=== PATIENT | male | born 1955 | race Caucasian/White ===

== ENCOUNTER → 2020-10-02 09:11 | Outpatient (BNVA) | payer MEDICARE, SELFPAY | PROVIDERS: PCP Internal Medicine; Visit Provider Urology | DX: N40.0 Benign prostatic hyperplasia without lower urinary tract symptoms (principal) | CPT/HCPCS: Q3014 ==

== ENCOUNTER → 2021-05-28 09:27 | Outpatient (BNVA) | payer MEDICARE, SELFPAY | PROVIDERS: PCP Internal Medicine; Referring Provider Internal Medicine; Visit Provider Surgery | DX: K40.20 Bilateral inguinal hernia, without obstruction or gangrene, not specified as recurrent (principal) | CPT/HCPCS: 99202 ==

== ENCOUNTER 2021-06-12 05:59 | Day surgery (SDC) | payer MEDICARE, SELFPAY ==
[2021-06-07 13:30] VITALS: BMI 25.7
--- NOTE | 2021-06-11 09:33 | HO.ANESPROP2 ---
Documented by User: Amisha Flanagan NP 06/11/21 09:34 HPI - Anesthesia Eval Consult details Narrative: 65yo M for Bilateral Hernia Repair Inguinal with Mesh PMFSH Active Problems Active Problems: All Active Problems (Updated 05/28/21 @ 10:40 by Pipe Freeman MD) Bilateral inguinal hernia (Acute) Past Medical History Medical History Anxiety BPH (benign prostatic hyperplasia) Elevated blood pressure reading in office with diagnosis of hypertension Elevated PSA Hypogonadism in male Retention of urine Family History Family History Mother Breast cancer Surgical History Surgical History H/O colonoscopy History of transurethral resection of prostate Social History Social History Alcohol intake: current Patient Tobacco Use Status: Never used Tobacco Advance Directives Information Provided: No Meds Allergies Allergy/AdvReac Type Severity Reaction Status Date / Time No Known Allergies Allergy Unverified 06/14/20 14:39 [No Known Allergies*] Home Medications Medication Instructions Recorded Confirmed Last Taken Type ketorolac 0.5 % eye drops 1 drp OPHTHALMIC (EYE) DAILY 10/02/20 06/07/21 Unknown History lorazepam 0.5 mg tablet 0.5 mg PO TID PRN 10/02/20 06/07/21 Unknown History nifedipine 30 mg tablet,extended 30 mg PO DAILY 10/02/20 06/07/21 Unknown History release valsartan 160 mg tablet 160 mg PO DAILY 10/02/20 06/07/21 Unknown History Exam Exam Date and Time: June 11, 2021 0933 Height,Weight and Vital Signs: Height 5 ft 7 in Weight 74.5 kg Assessment and Plan Assessment Anesthesia Assessment: Chart Reviewed Documented by User: Lizzie Smith MD 06/12/21 07:32 [facility], [facility] Past Medical History Medical History Anxiety BPH (benign prostatic hyperplasia) Elevated blood pressure reading in office with diagnosis of hypertension Elevated PSA Hypogonadism in male Retention of urine Family History Family History Mother Breast cancer Family history of problems with anesthesia: No Surgical History Surgical History H/O colonoscopy History of transurethral resection of prostate History of Problems with Anesthesia: No Social History Social History Alcohol intake: current Patient Tobacco Use Status: Never used Tobacco Advance Directives Information Provided: No Meds Allergies Allergy/AdvReac Type Severity Reaction Status Date / Time No Known Allergies Allergy Unverified 06/14/20 14:39 [No Known Allergies*] Home Medications Medication Instructions Recorded Confirmed Last Taken Type ketorolac 0.5 % eye drops 1 drp OPHTHALMIC (EYE) DAILY 10/02/20 06/07/21 Unknown History lorazepam 0.5 mg tablet 0.5 mg PO TID PRN 10/02/20 06/07/21 Unknown History nifedipine 30 mg tablet,extended 30 mg PO DAILY 10/02/20 06/07/21 Unknown History release valsartan 160 mg tablet 160 mg PO DAILY 10/02/20 06/07/21 Unknown History Exam Height,Weight and Vital Signs: Height 5 ft 7 in Weight 74.5 kg Vital Signs Temp Pulse Resp BP Pulse Ox 06/12/21 06:26 98.5 F 78 16 170/80 H 99 Airway Mallampati Class: II TM Dist: >3cm Neck ROM: Full Loose/Missing/Broken Teeth: No Heart: RRR Lungs: CTAB Assessment and Plan Assessment Anesthesia Assessment: Anesthesia Plan Discussed Final Anesthetic Review Family History of Problems with Anesthesia: No History of Problems with Anesthesia: No NPO: Yes ASA Class: II Final Preanesthetic Review: No Changes in Pt Med Stat, Meds/Allgs Chart Reviewed, Consent Obtained/Reviewed and Anes Risks/Benef Reviewed Patient Risk: Low Procedure Risk: Low Assessment/Block/Sedation in SS: Assess/Block/Sedation-SS Anesthetic Plan Anesthetic Plan: GA Disposition: Standard PACU
[2021-06-12] VITALS (9 sets, daily range): BP systolic 130–170; BP diastolic 61–80; PULSE 73–85; RESP 12–18; TEMP 36.4–36.9; O2SAT 96–99
[2021-06-12] MEDS: Lactated Ringers 1,000 ML 100 ML IVCONT (06:52)
--- NOTE | 2021-06-12 07:25 | MHC.SHP ---
Pre-Procedural Eval Section A Date of Service: 06/12/21 The patient is an INPATIENT: No Changes since office visit: Yes Patient answered all questions; No Cold of Flu in the past 2 weeks, No New Medical Problems and No Changes in Medication The History & Physical has been completed within 30 days and I have reviewed it.: Yes Section B Chief Complaint: Bilateral Inguinal Hernia Allergies: Allergies Allergy/AdvReac Type Severity Reaction Status Date / Time No Known Allergies Allergy Unverified 06/14/20 14:39 [No Known Allergies*] Plan Diagnosis/Plan: Unchanged I have reviewed the history and physical and performed a pertinent physical examination on my patient. No changes have occurred unless specified.
--- NOTE | 2021-06-12 09:16 | P.OP_ITS ---
Operative Note Operative Note Date of Service: 06/12/21 Narrative: Preoperative diagnosis: Bilateral inguinal hernias Postoperative diagnosis: Same Procedure: Repair of bilateral inguinal hernias with mesh Surgeon: Pipe Freeman MD Railroad Wheels And Axle Inspector: No physician Anesthesia: General LMA Indications for procedure: 65-year-old male patient presenting with a palpable bilateral inguinal hernias which increase in size with Valsalva maneuvers and reduces with light pressure. Operative findings: Bilateral indirect inguinal hernias Specimen: Bilateral inguinal hernia sac Estimated blood loss: 10 mL Complications: None Procedure details: Patient was brought to the OR placed in a supine position. After administering general anesthesia the patient's abdomen was prepped with ChloraPrep and draped in a sterile fashion. A surgical time-out was called and the consent confirmed. Patient received preoperative antibiotics and Venodyne boots were in place. Beginning on the left side local anesthesia consisting of 0.5% Sensorcaine was infiltrated over the inguinal ligament. Incision was then made with a scalpel carried out through subcutaneous tissue, past Meme's fascia, and up to the external oblique aponeurosis. Additional local was infiltrated below the aponeu rosis. This was then incised in the direction of the fibers and wide with the Metzenbaum scissors. Spermatic cord was then dissected free from the inguinal canal and retracted using a Andrews drain. The floor of the inguinal canal was found to be intact without a direct hernia. Fibers of the cremasteric muscle were then with electrocautery. An indirect hernia sac was identified. This was dissected down to the internal ring. The sac was opened and the contents reduced. The sac was then ligated using a 0 Polysorb suture. Sac was sent to pathology for further examination. Attention was then directed to the inguinal floor. Fibers of the internal oblique aponeurosis and transversalis aponeurosis were incised with electrocautery in the preperitoneal space entered. This was then widened using an open Ray-Kemal sponge. An extended large PHS mesh was then obtained. The circular underlay was then deployed into the preperitoneal space. The overlay was then secured to the pubic tubercle, conjoined tendon, and shelving edge of the inguinal ligament using 0 Polysorb sutures. A slit was made in the mesh at the internal ring and wrapped around the spermatic cord. This was then secured to the shelving edge of the inguinal ligament using a 0 Polysorb suture. The lateral mesh was then secured below the external oblique aponeurosis. The internal ring was tight enough to allow passage of the index finger tip. Wounds were then irrigated with saline solution and suctioned dry. External oblique aponeurosis was then closed using a running 2 0 Polysorb suture. Dermis and Meme's fascia was closed using interrupted 3-0 Polysorb sutures. Skin was then closed using a running 4-0 Polysorb suture. Attention was then directed to the right groin. Again local anesthesia consisting of 0.5% Sensorcaine was infiltrated over the inguinal ligament. Incision was then made with a scalpel carried out through subcutaneous tissue, past Meme's fascia, and up to the external oblique aponeurosis. Additional local was infiltrated below the aponeurosis. This was then incised in the direction of the fibers and wide with the Metzenbaum scissors. Spermatic cord was then dissected free from the inguinal canal and retracted using a Andrews drain. The floor of the inguinal canal was found to be intact without a direct hernia. Fibers of the cremasteric muscle were then with electrocautery. An indirect hernia sac was identified. This was dissected down to the internal ring. The sac was opened and the contents reduced. The sac was then ligated using a 0 Polysorb suture. Sac was sent to pathology for further examination. Attention was then directed to the inguinal floor. Fibers of the internal oblique aponeurosis and transversalis aponeurosis were incised with electrocautery in the preperitoneal space entered. This was then widened using an open Ray-Kemal sponge. An extended large PHS mesh was then obtained. The circular underlay was then deployed into the preperitoneal space. The overlay was then secured to the pubic tubercle, conjoined tendon, and shelving edge of the inguinal ligament using 0 Polysorb sutures. A slit was made in the mesh at the internal ring and wrapped around the spermatic cord. This was then secured to the shelving edge of the inguinal ligament using a 0 Polysorb suture. The lateral mesh was then secured below the external oblique aponeurosis. The internal ring was tight enough to allow passage of the index finger tip. Wounds were then irrigated with saline solution and suctioned dry. External oblique aponeurosis was then closed using a running 2 0 Polysorb suture. Dermis and Meme's fascia was closed using interrupted 3-0 Polysorb sutures. Skin was then closed using a running 4-0 Polysorb suture. Sterile dressings consisting of Steri-Strips, 2 x 2 gauze and Tegaderm were then applied. Patient tolerated the procedure well. Sponge, instrument, needle counts reported as correct. The patient was transferred to PACU in stable condition.
--- NOTE | 2021-06-12 10:48 | PC.NURSE ---
getting patient ready for discharge iv out and getting dressed when he reported nausea. Anesthesia aware awaiting orders.
[2021-06-12] MEDS: Ondansetron ODT 4 MG TAB.RAPDIS TRANSLINGU (11:04)
== END 2021-06-12 12:23 | disposition home or self-care (01) ==
PROVIDERS: PCP Internal Medicine; Visit Provider Surgery
PROC: (CPT 49505; principal; 2021-06-12 07:30)
DX: K40.20 Bilateral inguinal hernia, without obstruction or gangrene, not specified as recurrent (principal); I10 Essential (primary) hypertension; N40.1 Benign prostatic hyperplasia with lower urinary tract symptoms; R33.8 Other retention of urine; R97.20 Elevated prostate specific antigen [PSA]; Z79.899 Other long term (current) drug therapy
CPT/HCPCS: 49505; 88302; C1781; J0690; J1100; J1170; J1885; J2250; J2405; J3010

== ENCOUNTER → 2021-06-20 15:31 | Outpatient (BNVA) | payer MEDICARE, SELFPAY | PROVIDERS: PCP Internal Medicine; Referring Provider Internal Medicine; Visit Provider Surgery | DX: Z48.815 Encounter for surgical aftercare following surgery on the digestive system (principal); Z87.19 Personal history of other diseases of the digestive system | CPT/HCPCS: 99024; 99204; 99212 ==

== ENCOUNTER → 2021-07-19 10:03 | Outpatient (BNVA) | payer MEDICARE, SELFPAY | PROVIDERS: PCP Internal Medicine; Referring Provider Internal Medicine; Visit Provider Surgery | DX: K40.20 Bilateral inguinal hernia, without obstruction or gangrene, not specified as recurrent (principal); R03.0 Elevated blood-pressure reading, without diagnosis of hypertension; N40.0 Benign prostatic hyperplasia without lower urinary tract symptoms; R97.20 Elevated prostate specific antigen [PSA]; E29.1 Testicular hypofunction | CPT/HCPCS: 99212 ==

== ENCOUNTER 2021-09-27 07:47 | Outpatient (REF) | payer MEDICARE, SELFPAY ==
[2021-09-30 12:02] LABS: Free Prostate Spec Ag 0.9 ng/mL; Percent Free Prostate Spec Ag 20 % (calc) (>25); Prostate Specific Ag Total 4.5 ng/mL (< OR = 4.0)
== END 2021-09-27 07:48 | disposition home or self-care (01) ==
LOC: HO.LAB 07:47
PROVIDERS: PCP Internal Medicine; Visit Provider Urology
DX: R97.20 Elevated prostate specific antigen [PSA] (principal); Z12.5 Encounter for screening for malignant neoplasm of prostate
CPT/HCPCS: 36415; 84153; 84154

== ENCOUNTER → 2021-10-04 09:45 | Outpatient (BNVA) | payer MEDICARE, SELFPAY | PROVIDERS: PCP Internal Medicine; Visit Provider Urology | DX: N40.0 Benign prostatic hyperplasia without lower urinary tract symptoms (principal); R97.20 Elevated prostate specific antigen [PSA] | CPT/HCPCS: Q3014 ==

== ENCOUNTER 2022-03-24 14:23 | Outpatient (REF) | payer MEDICARE, SELFPAY ==
[2022-03-24 15:41] LABS: PSA,Total (Free>4and<10) 3.67 ng/mL (0.00-4.00)
== END 2022-03-24 14:24 | disposition home or self-care (01) ==
LOC: HO.LAB 14:23
PROVIDERS: PCP Internal Medicine; Visit Provider Urology
DX: Z12.5 Encounter for screening for malignant neoplasm of prostate (principal); N13.8 Other obstructive and reflux uropathy; N40.1 Benign prostatic hyperplasia with lower urinary tract symptoms
CPT/HCPCS: 36415; 84153

== ENCOUNTER → 2022-04-04 08:21 | Outpatient (BNVA) | payer MEDICARE, SELFPAY | PROVIDERS: PCP Internal Medicine; Visit Provider Urology | DX: R97.20 Elevated prostate specific antigen [PSA] (principal); N52.9 Male erectile dysfunction, unspecified | CPT/HCPCS: Q3014 ==

== ENCOUNTER → 2022-08-28 09:38 | Outpatient (BNVA) | payer MEDICARE, SELFPAY | PROVIDERS: PCP Internal Medicine; Visit Provider Surgery | DX: R10.31 Right lower quadrant pain (principal) | CPT/HCPCS: 99212 ==

== ENCOUNTER 2022-09-02 11:49 | Outpatient (REF) | payer MEDICARE, SELFPAY ==
--- NOTE | ~2022-09-02 | CT_ITS ---
EXAMINATION: CT PELVIS WITHOUT CONTRAST CLINICAL INFORMATION: Right lower quadrant pain COMPARISON: Previous CT of the abdomen and pelvis November 2015 TECHNIQUE: Helical scanning was performed with submillimeter collimation through the pelvis. Sagittal and coronal multiplanar 2-D reconstructions were obtained. This CT examination was performed using dose optimization techniques as appropriate, variously including the following: *Automated exposure control *Adjustment of mA and/or kV according to patient size (this includes techniques or standardized protocols for targeted exams where dose is matched to indication/reason for exam; i.e. extremities or head) *Use of iterative reconstruction technique DLP: 628 mGy-cm FINDINGS: There is abnormal soft tissue at the base of the bladder. Presumably this is related to an enlarged prostate gland that protrudes into the base of the bladder. The prostate gland measures 4.3 x 5.2 cm in AP and transverse dimension. There is mild dilatation of both distal ureters. There is mild diverticulosis of the colon. No evidence of diverticulitis. Large amount of stool in the rectosigmoid region. The appendix is unremarkable. The gallbladder is partially visualized and may be distended. The gallbladder measures 4 x 4 centimeters in AP and transverse dimension and extends into the pelvis. No hernia. No enlarged lymph nodes. No ascites. Degenerative changes of the spine. CT/CT pelvis wo IV con IMPRESSION: Enlarged prostate gland that protrudes into the base of the bladder. Mild diverticulosis of the colon. No evidence of diverticulitis. Large amount of stool in the rectosigmoid region. The gallbladder is partially visualized and may be distended. This could be further evaluated with ultrasound if clinically indicated.
[2022-09-02] MEDS: Barium Sulfate Oral (Vanilla) 450 ML ORAL.SUSP 900 ML PO (15:10)
== END 2022-09-02 11:50 | disposition home or self-care (01) ==
LOC: HO.CT 11:49
PROVIDERS: Visit Provider Surgery
DX: R10.31 Right lower quadrant pain (principal)
CPT/HCPCS: 72192

== ENCOUNTER → 2022-09-04 12:32 | Outpatient (BNVA) | payer MEDICARE, SELFPAY | PROVIDERS: PCP Internal Medicine; Visit Provider Surgery | DX: R10.31 Right lower quadrant pain (principal) | CPT/HCPCS: 99212 ==

== ENCOUNTER 2022-09-24 13:24 | Outpatient (REF) | payer MEDICARE, SELFPAY | END 2022-09-24 13:25 | disposition home or self-care (01) | LOC: HO.LAB 13:24 | PROVIDERS: Urology; PCP Internal Medicine; Visit Provider Psychiatry & Neurology Neurology | DX: Z12.5 Encounter for screening for malignant neoplasm of prostate (principal); N40.1 Benign prostatic hyperplasia with lower urinary tract symptoms; N13.8 Other obstructive and reflux uropathy | CPT/HCPCS: 36415; 84153 ==

== ENCOUNTER → 2022-09-26 10:12 | Outpatient (BNVA) | payer MEDICARE, SELFPAY | PROVIDERS: PCP Internal Medicine; Visit Provider Surgery | DX: R10.31 Right lower quadrant pain (principal) | CPT/HCPCS: 99212 ==

== ENCOUNTER → 2022-10-03 08:49 | Outpatient (BNVA) | payer MEDICARE, SELFPAY | PROVIDERS: PCP Internal Medicine; Visit Provider Urology | DX: N52.9 Male erectile dysfunction, unspecified (principal); R97.20 Elevated prostate specific antigen [PSA] | CPT/HCPCS: Q3014 ==

== ENCOUNTER 2023-04-13 13:35 | Outpatient (REF) | payer MEDICARE, SELFPAY ==
[2023-04-13 15:47] LABS: Prostate Specific Antigen 3.22 ng/mL (<0.05-4.0)
== END 2023-04-13 13:36 | disposition home or self-care (01) ==
LOC: HO.LAB 13:35
PROVIDERS: PCP Internal Medicine; Visit Provider Urology
DX: Z12.5 Encounter for screening for malignant neoplasm of prostate (principal); R97.20 Elevated prostate specific antigen [PSA]
CPT/HCPCS: 36415; 84153

== ENCOUNTER 2023-04-22 08:16 | Outpatient (AMB) | payer MEDICARE, SELFPAY ==
--- NOTE | 2023-04-22 08:17 | A.OFFVIS_ITS ---
Intake Intake Visit Reasons: 6M PSA(set) Intake Note: Patient is present for Telephone PSA Urology Med: Tadalafil Antibiotic Allergy:none Blood Thinner:none Allergies No Known Allergies [No Known Allergies*] Allergy (Verified 04/22/23 08:17) Medication List - Last Reconciled 04/22/23 by Manuel Salter MD lorazepam 0.5 mg PO TID PRN nifedipine ER 30 mg PO DAILY tadalafil 20 mg PO DAILY 30 days valsartan 160 mg PO DAILY HPI HPI Comments History of Present Illness Details Romie is a pleasant male. He is a patient of Dr. Goldberg. He is seen for the following urologic conditions - elevated PSA - lower urinary tract symptoms - erectile dysfunction Telemedicine evaluation 15 minute consultation [employer] chavo Video PSA fell Was careful not to ride bicycle day before test Minimize coffee Lower urinary tract symptoms Previous intervention with laser prostatectomy 2015 Good urinary stream and emptying Nocturia x1 Prior biopsy negative PSA 10/17 3.2, 10/18 2.9, 09/17 4.5 F 20% 03/19 3.7, 09/18 3.9, 04/19 3.2 Erectile dysfunction Responsive to oral medications Tadalafil 20 mg PFSH Medical History Anxiety BPH (benign prostatic hyperplasia) Elevated blood pressure reading in office with diagnosis of hypertension Elevated PSA Elevated PSA Hypogonadism in male Retention of urine Surgical History H/O colonoscopy History of transurethral resection of prostate Family History Mother Breast cancer Social History Alcohol intake: current Patient Tobacco Use Status: Never used Tobacco Review of Systems Const All systems reviewed & are unremarkable except as noted in HPI and below Reports no additional complaints Resp Reports no additional complaints GI Reports no additional complaints Reports as per HPI Musc Reports no additional complaints Physical Exam Telemedicine evaluation Appropriate responses Regular breathing rate and rhythm HEENT Head: Yes normal to inspection Ears: hearing grossly normal bilaterally Eyes General: appearance normal, both eyes and all related structures Neck Neck: Yes normal visual inspection Chest Chest palpation & inspection: normal inspection of the chest Resp Effort & Inspection: normal respiratory effort and able to speak in complete sentences Assessment & Plan Assessment & Plan (1) Erectile dysfunction: Code(s): N52.9 - Male erectile dysfunction, unspecified (2) BPH (benign prostatic hyperplasia): Comment: Laser 2015 Code(s): N40.0 - Benign prostatic hyperplasia without lower urinary tract symptoms Qualifiers: Lower urinary tract symptom presence: symptoms absent Qualified Code(s): N40.0 - Benign prostatic hyperplasia without lower urinary tract symptoms (3) Elevated PSA: Code(s): R97.20 - Elevated prostate specific antigen [PSA] Plan Six month follow-up labs Orders: Orders Prostate Specific Antigen 6 Months R97.20 - Elevated prostate specific antigen [PSA] Patient Instructions: Imaging studies, laboratory and physical exam results were discussed and reviewed in detail. No major barriers to patient understanding were identified. An opportunity to ask questions regarding the treatment plan was provided. All questions were answered. The patient expressed understanding and agreement with the above treatment plan. The patient is aware they should contact our office by phone for worsening of their current condition or the appearance of new urologic symptoms. Compliance is encouraged with any medications and followup testing that is ordered. It is a privilege to participate in the urologic care of your patient. If you have any questions or concerns regarding treatment for the above conditions, or other urologic issues, please do not hesitate to contact me. The office telephone contact is [phone]. This note is constructed using voice recognition software. While every effort has been made to ensure accuracy fiberglass dowel drawing operator errors may have been included. Yours sincerely, Dr Manuel Salter MD, [facility] - Urology Providers of Expert, Compassionate Care for the Genitourinary System Telehealth Telehealth Location of provider rendering services: practice address Location of patient: address on file Patient Identification confirmed using: Name, : Yes Telehealth method: video Patient verbally consented to treatment: Yes Patient verbally consented to billing insurance company: Yes Patient informed of any privacy concerns related to visit: Yes Coding Level of Care Code Tele Est Pt Level 3 (30044) Diagnoses Erectile dysfunction N52.9 BPH (benign prostatic hyperplasia) N40.0 Lower urinary tract symptom presence: symptoms absent Elevated PSA R97.20
== END 2023-04-22 09:07 | disposition home or self-care (01) ==
LOC: HO.HUSH 08:16
PROVIDERS: PCP Internal Medicine; Visit Provider Urology
DX: N52.9 Male erectile dysfunction, unspecified (principal); N40.0 Benign prostatic hyperplasia without lower urinary tract symptoms; R97.20 Elevated prostate specific antigen [PSA]
CPT/HCPCS: 99213

== ENCOUNTER → 2023-04-22 08:16 | Outpatient (BNVA) | payer MEDICARE, SELFPAY | PROVIDERS: PCP Internal Medicine; Visit Provider Urology | DX: N40.0 Benign prostatic hyperplasia without lower urinary tract symptoms (principal); N52.9 Male erectile dysfunction, unspecified; R97.20 Elevated prostate specific antigen [PSA] | CPT/HCPCS: Q3014 ==

== ENCOUNTER 2023-10-07 14:34 | Outpatient (REF) | payer MEDICARE, SELFPAY ==
[2023-10-07 15:41] LABS: Prostate Specific Antigen 3.56 ng/mL (<0.05-4.0)
== END 2023-10-07 14:35 | disposition home or self-care (01) ==
LOC: HO.LAB 14:34
PROVIDERS: PCP Internal Medicine; Visit Provider Urology
DX: Z12.5 Encounter for screening for malignant neoplasm of prostate (principal); R97.20 Elevated prostate specific antigen [PSA]
CPT/HCPCS: 36415; 84153

== ENCOUNTER 2023-10-27 09:26 | Outpatient (AMB) | payer MEDICARE, SELFPAY ==
--- NOTE | 2023-10-27 09:27 | A.OFFVIS_ITS ---
Intake Intake Visit Reasons: 6m/PSA(set) Intake Note: Patient presents today for a follow-up on: PSA Meds- Tadalafil Allergies to Antibiotic- No Known Allergies Blood Thinner- None Physician Credentialing Specialist Required: No Allergies No Known Allergies [No Known Allergies*] Allergy (Verified 10/27/23 09:29) Medication List - Last Reconciled 10/27/23 by Manuel Salter MD lorazepam 0.5 mg PO TID PRN nifedipine ER 30 mg PO DAILY tadalafil 20 mg PO DAILY 30 days valsartan 160 mg PO DAILY HPI HPI Comments History of Present Illness Details Romie is a pleasant male. He is a patient of Dr. Goldberg. He is seen for the following urologic conditions - elevated PSA - lower urinary tract symptoms - erectile dysfunction Telemedicine evaluation 15 minute consultation [employer] chavo Video attempted Discussed result Urinary parameters - good flow, effective emptying Some variability with use of tadalafil Notes better peak activity 12-16 hours Recommended change in dosing timing PSA fell Was careful not to ride bicycle day before test Minimize coffee Lower urinary tract symptoms Previous intervention with laser prostatectomy 2015 Good urinary stream and emptying Nocturia x1 Prior biopsy negative PSA 10/17 3.2, 10/18 2.9, 09/17 4.5 F 20% 03/19 3.7, 09/18 3.9, 04/19 3.2, 10/21 3.5 Erectile dysfunction Responsive to oral medications Tadalafil 20 mg on demand PFSH Medical History Elevated PSA BPH (benign prostatic hyperplasia) Hypogonadism in male Elevated PSA Anxiety Retention of urine Elevated blood pressure reading in office with diagnosis of hypertension Surgical History H/O colonoscopy History of transurethral resection of prostate Family History Mother Breast cancer Social History Alcohol intake: current Patient Tobacco Use Status: Never used Tobacco Review of Systems Const All systems reviewed & are unremarkable except as noted in HPI and below Reports no additional complaints Resp Reports no additional complaints GI Reports no additional complaints Reports as per HPI Musc Reports no additional complaints Physical Exam Telemedicine evaluation Appropriate responses Regular breathing rate and rhythm HEENT Head: Yes normal to inspection Ears: hearing grossly normal bilaterally Eyes General: appearance normal, both eyes and all related structures Neck Neck: Yes normal visual inspection Chest Chest palpation & inspection: normal inspection of the chest Resp Effort & Inspection: normal respiratory effort and able to speak in complete sentences Assessment & Plan Assessment & Plan (1) Erectile dysfunction: Code(s): N52.9 - Male erectile dysfunction, unspecified (2) BPH (benign prostatic hyperplasia): Comment: Laser 2015 Code(s): N40.0 - Benign prostatic hyperplasia without lower urinary tract symptoms Qualifiers: Lower urinary tract symptom presence: symptoms absent Qualified Code(s): N40.0 - Benign prostatic hyperplasia without lower urinary tract symptoms Plan 12m f/u PSA Orders: Orders PSA,Total (Free>4and<10) 364 Days N40.0 - Benign prostatic hyperplasia without lower urinary tract symptoms Patient Instructions: Imaging studies, laboratory and physical exam results were discussed and reviewed in detail. No major barriers to patient understanding were identified. An opportunity to ask questions regarding the treatment plan was provided. All questions were answered. The patient expressed understanding and agreement with the above treatment plan. The patient is aware they should contact our office by phone for worsening of their current condition or the appearance of new urologic symptoms. Compliance is encouraged with any medications and followup testing that is ordered. It is a privilege to participate in the urologic care of your patient. If you have any questions or concerns regarding treatment for the above conditions, or other urologic issues, please do not hesitate to contact me. The office telephone contact is [phone]. This note is constructed using voice recognition software. While every effort has been made to ensure accuracy hydraulic miner blasting errors may have been included. Yours sincerely, Dr Manuel Salter MD, [facility] - Urology Providers of Expert, Compassionate Care for the Genitourinary System Telehealth Telehealth Location of provider rendering services: practice address Location of patient: address on file Patient Identification confirmed using: Name, : Yes Telehealth method: video Patient verbally consented to treatment: Yes Patient verbally consented to billing insurance company: Yes Patient informed of any privacy concerns related to visit: Yes Coding Level of Care Code Tele Est Pt Level 4 (21293) Diagnoses Erectile dysfunction N52.9 Benign prostatic hyperplasia without lower urinary tract symptoms N40.0 Lower urinary tract symptom presence: symptoms absent
== END 2023-10-27 10:08 | disposition home or self-care (01) ==
LOC: HO.HUSH 09:26
PROVIDERS: PCP Internal Medicine; Visit Provider Urology
DX: N52.9 Male erectile dysfunction, unspecified (principal); N40.0 Benign prostatic hyperplasia without lower urinary tract symptoms
CPT/HCPCS: 99213

== ENCOUNTER → 2023-10-27 09:26 | Outpatient (BNVA) | payer MEDICARE, SELFPAY | PROVIDERS: PCP Internal Medicine; Visit Provider Urology ==

== ENCOUNTER 2024-04-21 17:03 | Emergency (ER) | payer MEDICARE, SELFPAY ==
--- NOTE | ~2024-04-21 | XR_ITS ---
EXAMINATION: XR CHEST CLINICAL INFORMATION: Abnormal EKG COMPARISON: None available. TECHNIQUE: 2 views of the chest were obtained. FINDINGS: No significant abnormality is noted involving the heart, lungs, mediastinum, bony thorax or soft tissues. XR/XR chest 2V IMPRESSION: Unremarkable examination.
--- NOTE | 2024-04-21 17:04 | ECG_ITS ---
Test Reason : EKG CHANGES Blood Pressure : / mmHG Vent. Rate : 087 BPM Atrial Rate : 087 BPM P-R Int : 162 ms QRS Dur : 116 ms QT Int : 376 ms P-R-T Axes : 046 -60 068 degrees QTc Int : 452 ms Sinus rhythm with occasional Premature ventricular complexes and Premature atrial complexes Possible Left atrial enlargement Left anterior fascicular block Left ventricular hypertrophy with QRS widening and repolarization abnormality ( R in aVL , [place] product , Romhilt-Rm ) Cannot rule out Septal infarct , age undetermined Abnormal ECG When compared with ECG of 19-DEC-2015 15:28, Significant changes have occurred Referred By: Generic ED Physician Electronically Signed By:VIV MAKI
--- NOTE | 2024-04-21 17:05 | ED_ITS ---
HPI - General Adult General Chief complaint: Arrhythmia/Palpitations Stated complaint: abnormal EKG. Dr Goldberg sent him over Time Seen by Provider: 04/21/24 19:13 Source: patient Mode of arrival: ambulatory Limitations: no limitations History of Present Illness ED Provider: Dr. Coronel HPI narrative: patient went to his doctor and was told his pressure was high and his EKG changed so his doctor decided to send him to the ED. Patient has no chest pain or shortness of breath Onset (ago): unknown Related Data Home Medications ?Medication ?Instructions ?Recorded ?Confirmed lorazepam 0.5 mg tablet 0.5 mg PO TID PRN Anxiety 10/02/20 10/27/23 nifedipine 30 mg tablet,extended 30 mg PO DAILY 10/02/20 10/27/23 release valsartan 160 mg tablet 160 mg PO DAILY 10/02/20 10/27/23 Previous Rx's ?Medication ?Instructions ?Recorded tadalafil 20 mg tablet 20 mg PO DAILY 30 days #30 tabs 04/20/24 Allergies Allergy/AdvReac Type Severity Reaction Status Date / Time No Known Allergies Allergy Verified 04/21/24 17:16 [No Known Allergies*] Review of Systems 2 Review of Systems: Yes all other systems are reviewed and are negative Neurologic: Denies Sensory deficit (Neuro) [facility] Past Medical History Medical History Elevated PSA BPH (benign prostatic hyperplasia) Hypogonadism in male Elevated PSA Anxiety Retention of urine Elevated blood pressure reading in office with diagnosis of hypertension Surgical History H/O colonoscopy History of transurethral resection of prostate Family History Family History Mother Breast cancer Social History Social History Alcohol intake: current Alcohol intake frequency: holidays/special occasions only Patient Tobacco Use Status: Never used Tobacco Smoked in Last 30 Days: No Use of substances other than those prescribed or required for medical reasons: No Advance Directives: Yes Advance Directives Information Provided: No Advance Directives on File: No Do you have a plan to hurt others: No Plan Physical Exam ED Vital Signs: Vital Signs - 24 hr 04/21/24 17:15 04/21/24 19:36 Temperature 98.7 F 98.3 F Pulse Rate 87 78 Respiratory Rate 16 16 Blood Pressure 153/84 H 185/78 H Pulse Oximetry 99 99 Oxygen Delivery Method Room Air Room Air BMI result Body Mass Index 26.6 Const General: healthy appearing Nutritional Appearance: average body habitus Orientation/consciousness: oriented to person and patient oriented x3 Limitations: no limitations HENMT Head: Yes normal to inspection Ears: external ears normal General nose exam: Normal external nose present Mouth: Normal oral and palatal mucosa present and oropharynx normal Throat: Yes posterior oropharynx normal Eyes General: appearance normal, both eyes and all related structures Neck Neck: Yes normal visual inspection Chest Chest palpation & inspection: normal inspection of the chest Resp Auscultation: clear to auscultation bilaterally Cardio Jugular venous distension: no JVD Rate: regular rate Rhythm: regular rhythm Heart sounds: S1 normal heart sound present and S2 normal heart sound present GI Inspection: Yes normal to inspection Palpation (GI): Soft to palpation, nontender and No hepatosplenomegaly present Auscultation: normal bowel sounds General: Yes no CVA tenderness Back/Spine/Pelvis Back: no CVA tenderness Skin General skin exam: no rashes or lesions noted Neuro General: oriented to person and patient oriented x3 Cranial nerves: Yes CN's II-XII intact bilaterally Motor exam (neuro): 5/5 motor strength present throughout Sensory Exam: No Sensory deficit (Neuro) Extrem General: Yes normal to inspection Psych Appearance: grossly normal Course Course Course Narrative: This is a rapid medical exam performed by Sim Gao NP: Additional HPI, ROS, PE not included below will be deferred to primary provider. Patient is a 68-year-old male referred to the ED by PCP for abnormal EKG. Patient was there for a routine physical. ST elevation noted in V1, V2, V3 on EKG done at PCP office. BP elevated there, 190 systolic. Patient states he checked in at home, was normal. 150/84 in triage, is on nifedipine and valsartan. PCP increased nifedipine from 30 to 60 today. Patient denies chest pain, palpitations or dyspnea. Plan: EKG, labs, cxr Reevaluation(s) Reevaluation #1: small delta in troponin, no st elevation in EKG will dc with follow up with Dr. Ramachandran Time: 21:09 Medical Decision Making Differential Diagnosis Differential Diagnoses: The differential diagnosis associated with the presentation includes (cardiac ischemia, HTN, EKG changes) Admission/Observation Consideration of admission/observation: Escalation of care including admission/observation considered (upon arrival admission was considered) Lab Data 04/21/24 17:38 04/21/24 17:38 Labs: Lab Results 04/21/24 04/21/24 Range/Units 17:38 19:37 WBC 8.3 (4.8-10.8) X10*3/uL RBC 5.01 (4.60-5.80) X10*6/uL Hgb 16.1 (14.0-18.0) g/dl Hct 45.3 (42.0-52.0) % MCV 90.4 (80.0-98.0) fL MCH 32.1 (27.0-33.0) pg MCHC 35.5 (31.0-36.0) g/dl RDW 12.4 (11.0-16.0) % Plt Count 194 (160-400) X10*3/uL MPV 10.5 (9.4-12.4) fL Immature Gran % (Auto) 0.1 (0.0-0.4) % Neut % (Auto) 68.6 (45-73) % Lymph % (Auto) 19.9 L (20-40) % [place] % (Auto) 10.2 (2-11) % Eos % (Auto) 0.6 (0-4) % Baso % (Auto) 0.6 (0-2) % Lymph # (Auto) 1.6 (1.2-4.9) X10*3/uL [place] # (Auto) 0.8 (0.1-1.2) X10*3/uL Eos # (Auto) 0.1 (0.0-0.4) X10*3/uL Baso # (Auto) 0.1 (0.0-0.2) X10*3/uL Abs Immat Gran (auto) 0.01 (0.00-0.03) X10*3/uL Absolute Neuts (auto) 5.7 (2.0-8.3) x10*3/uL Absolute Nucleated RBC 0.000 (0.0-0.012) X10*3/uL Nucleated RBC % (auto) 0.0 (0.0-0.2) /100WBC PT 12.5 (11.1-13.3) SEC INR 1.0 (0.9-1.1) Sodium 142 (135-145) mmol/L Potassium 3.6 (3.3-5.1) mmol/L Chloride 108 (96-108) mmol/L Carbon Dioxide 24 (22-29) mmol/L Anion Gap 14 (12-20) BUN 13 (9-16) mg/dL Creatinine 1.12 (0.5-1.4) mg/dL Estim Creat Clear Calc 60.2 Estimated GFR > 60 Random Glucose 120 H (60-115) mg/dL Calcium 9.2 (8.4-10.2) mg/dL Total Bilirubin 0.6 (0.0-1.0) mg/dL AST 15 (5-37) U/L ALT 10 (0-40) U/L Alkaline Phosphatase 59 (39-117) U/L Troponin I High Sens 5.5 9.5 D (<3.5-35.0) ng/L Total Protein 6.7 (6.5-8.0) g/dL Albumin 4.2 (3.5-5.0) g/dL Independent Interpretation I performed an independent interpretation of an: EKG (sinus 85, pvcs, apcs, left ventricular hypertrophy, no st or twave changes) and Plain X-Ray (CXR no infiltrate) Independent Historian Clinical information obtained from an independent historian. History obtained from or confirmed by: Spouse Prescription Management I considered prescription management with: Antibiotic (no pneumonia on xray) Chronic Conditions Patient?s care impacted by: Hypertension Discharge Plan Discharge Clinical Impression: Nonspecific ST-T wave electrocardiographic changes, Hypertension Patient Disposition: Home, Self-Care Instructions: Hypertension (ED) Prescriptions: No Action tadalafil 20 mg tablet 20 mg PO DAILY 30 Days Qty: 30 6RF valsartan 160 mg tablet 160 mg PO DAILY nifedipine 30 mg tablet extended release 30 mg PO DAILY lorazepam 0.5 mg tablet 0.5 mg PO TID PRN (Reason: Anxiety) Referrals: Humberto Ramachandran MD [Physician] - 1 week Print Language: Bengali
[2024-04-21 17:15] VITALS: BP 153/84; PULSE 87; RESP 16; TEMP 37.1; O2SAT 99; BMI 26.6
[2024-04-21 17:43] LABS: MANUAL DIFF FLAG NO
[2024-04-21 17:45] LABS: Basophils Absolute Auto 0.1 X10*3/uL (0.0-0.2); Basophils Percent Auto 0.6 % (0-2); Eosinophils Absolute Auto 0.1 X10*3/uL (0.0-0.4); Eosinophils Percent Auto 0.6 % (0-4); Hematocrit 45.3 % (42.0-52.0); Hemoglobin 16.1 g/dl (14.0-18.0); Imm Gran Abs Auto 0.01 X10*3/uL (0.00-0.03); Imm Gran Pct Auto 0.1 % (0.0-0.4); Lymphocytes Absolute Auto 1.6 X10*3/uL (1.2-4.9); Lymphocytes Percent Auto 19.9 % (20-40); Mean Corpuscular HGB Conc 35.5 g/dl (31.0-36.0); Mean Corpuscular Hemoglobin 32.1 pg (27.0-33.0); Mean Corpuscular Volume 90.4 fL (80.0-98.0); Mean Platelet Volume 10.5 fL (9.4-12.4); Monocytes Absolute Auto 0.8 X10*3/uL (0.1-1.2); Monocytes Percent Auto 10.2 % (2-11); Neutrophils Absolute Auto 5.7 x10*3/uL (2.0-8.3); Neutrophils Percent Auto 68.6 % (45-73); Platelet Count 194 X10*3/uL (160-400); Red Blood Count 5.01 X10*6/uL (4.60-5.80); Red Cell Distribution Width 12.4 % (11.0-16.0); White Blood Count 8.3 X10*3/uL (4.8-10.8)
[2024-04-21 17:56] LABS: Prothrombin Time 12.5 SEC (11.1-13.3)
[2024-04-21 17:58] LABS: Alanine Aminotransferase 10 U/L (0-40); Albumin Level 4.2 g/dL (3.5-5.0); Alkaline Phosphatase 59 U/L (39-117); Anion Gap 14 (12-20); Aspartate Amino Transferase 15 U/L (5-37); Bilirubin Total 0.6 mg/dL (0.0-1.0); Blood Urea Nitrogen 13 mg/dL (9-16); Calcium 9.2 mg/dL (8.4-10.2); Carbon Dioxide 24 mmol/L (22-29); Chloride 108 mmol/L (96-108); Creatinine Clr Calc Pharmacy 60.2; Estimated Glomerular Filt Rate > 60; Glucose Random 120 mg/dL (60-115); Potassium 3.6 mmol/L (3.3-5.1); Sodium 142 mmol/L (135-145); Total Protein 6.7 g/dL (6.5-8.0)
[2024-04-21 18:05] LABS: Troponin-I High Sensitivity 5.5 ng/L (<3.5-35.0)
[2024-04-21 19:36] VITALS: BP 185/78; PULSE 78; RESP 16; TEMP 36.8; O2SAT 99
--- NOTE | 2024-04-21 19:38 | PC.NURSE ---
this rn assumed care of pt, pt a&ox4, respirations even and unlabored. pt reports being sent by PCP after a physical when PCP stated he heard a murmer on pt. pt deneis chest pain, nausea, vomiting, diarrhea, denies palpations. pt reports he does not feel abnormal at this time.
[2024-04-21 20:09] LABS: Troponin-I High Sensitivity 9.5 ng/L (<3.5-35.0)
[2024-04-21 21:19] VITALS: BP 192/78; PULSE 67; RESP 16; O2SAT 97
[2024-04-21 21:20] VITALS: BP 192/78; PULSE 67; RESP 16; TEMP 36.8; O2SAT 97
== END 2024-04-21 21:23 | disposition home or self-care (01) ==
PROVIDERS: Registered Nurse Emergency; Emergency Provider Emergency Medicine; PCP Internal Medicine
DX: I49.9 Cardiac arrhythmia, unspecified (principal); R00.2 Palpitations; I10 Essential (primary) hypertension; Z79.899 Other long term (current) drug therapy
CPT/HCPCS: 36415; 71046; 80053; 84484; 85025; 85610; 93005; 99283; 99285

== ENCOUNTER → 2024-04-21 17:04 | Outpatient (BNV) | payer MEDICARE, SELFPAY | PROVIDERS: Emergency Provider Emergency Medicine; PCP Internal Medicine; Visit Provider Internal Medicine | DX: R94.31 Abnormal electrocardiogram [ECG] [EKG] (principal) | CPT/HCPCS: 93010 ==

== ENCOUNTER 2024-04-22 10:56 | Outpatient (AMB) | payer MEDICARE, SELFPAY ==
[2024-04-22 10:59] VITALS: BP 184/60; PULSE 88; BMI 26.3
--- NOTE | 2024-04-22 10:59 | MHC.OFFVIS ---
Vital Signs 04/22/24 10:59 Height 5 ft 8 in Weight 173 lb 4.533 oz BMI 26.3 BP 184/60 H Blood Pressure Location Lt brachial Position Sitting Pulse 88 Pulse Source Pulse Oximeter Intake Visit Reasons: HAND UPPER AND BOTTOM LACER/ Mugg/ new ST elevation Public Opinion Survey Taker Required: No Accompanied by: Self / Same As Patient Allergies No Known Allergies [No Known Allergies*] Allergy (Verified 04/21/24 17:16) Medication List - Last Reconciled 04/22/24 by Humberto Ramachandran MD lorazepam 0.5 mg PO TID PRN nifedipine ER 60 mg PO DAILY tadalafil 20 mg PO DAILY 30 days valsartan 160 mg PO DAILY HPI Comments Details: Romie is here for consultation regarding an abnormal EKG. He was seen by his primary care physician yesterday who felt his EKG showed ST elevation and hence referred him to the emergency room. He had troponins checked which were unremarkable and hence he was discharged home. Patient states he is extremely active at baseline. He does not have any chest pain or shortness of breath or in fact anything cardiac sounding. He states he can bicycle more than 20 miles with no issues. No previous myocardial infarction or cardiomyopathy or any other cardiac concerns. He does have hypertension and possibly not well controlled. [facility] Medical History Elevated PSA BPH (benign prostatic hyperplasia) Hypogonadism in male Elevated PSA Anxiety Retention of urine Elevated blood pressure reading in office with diagnosis of hypertension Surgical History H/O colonoscopy History of transurethral resection of prostate Family History (Updated 04/22/24 @ 11:02 by Cesilia Agrawal CMA) Mother Breast cancer Father Heart attack Social History Alcohol intake: current Alcohol intake frequency: holidays/special occasions only Patient Tobacco Use Status: Never used Tobacco Review of Systems Const Denies chills, Denies daytime sleepiness, Denies fatigue, Denies fever(s), Denies poor appetite, Denies snoring, Denies stops breathing during sleep, Denies weakness, Denies weight gain and Denies weight loss Eyes Denies loss of vision ENT Denies dizziness and Denies hearing loss Card Denies chest pain, Denies irregular heart rhythm, Denies claudication, Denies leg edema, Denies lightheadedness, Denies palpitations, Denies dyspnea on exertion and Denies orthopnea Resp Denies cough, Denies excessive phlegm production, Denies dyspnea on exertion, Denies snoring and Denies wheezing GI Denies abdominal pain, Denies hematochezia, Denies change in bowel habits, Denies nausea and Denies vomiting Denies dysuria and Denies urinary frequency Musc Denies arthralgias, Denies muscle weakness, Denies numbness and Denies other Skin/Breast Denies nail changes and Denies rash Neuro Denies Abnormal speech present, Denies dizziness, Denies loss of vision, Denies memory loss, Denies numbness and Denies weakness Psych Denies depression and Denies memory loss Endo Denies fatigue and Denies palpitations Rohan/Lymph Denies easy bruising Aller/Immun Denies wheezing Physical Exam Vital Signs: Last Vital Signs Pulse 88 04/22/24 10:59 BP 184/60 H 04/22/24 10:59 BMI result Body Mass Index 26.3 Const General: comfortable and no acute distress Orientation/consciousness: patient oriented x3 HEENT Other: Unremarkable Head: Yes normal to inspection Neck Neck: Yes normal visual inspection Chest Chest palpation & inspection: normal inspection of the chest Resp Auscultation: clear to auscultation bilaterally Cardio Palpation: normal PMI Heart sounds: S1 normal heart sound present, S2 normal heart sound present, no gallops, Murmur heart sound present diastolic and systolic and no rubs GI Palpation (GI): Soft to palpation Back/Spine/Pelvis Other: unremarkable Skin General skin exam: no rashes or lesions noted Neuro General: patient oriented x3 Speech: No Abnormal speech present Extrem General: Yes normal to inspection Psych Mental Status: mental status grossly normal Assessment & Plan Assessment & Plan (1) Aortic valve disease: Code(s): I35.9 - Nonrheumatic aortic valve disorder, unspecified Category: Medical (2) Uncontrolled hypertension: Code(s): I10 - Essential (primary) hypertension Category: Medical Plan In the EKG from ER, underlying rhythm is sinus at 87/Min; left ventricular hypertrophy with repolarization changes; can not exclude old septal infarct and possible left atrial enlargement. These findings could be related to poorly controlled longstanding hypertension. Additionally, on examination, he does have aortic valve murmur, possibly some combination of stenosis/regurgitation. With regard to hypertension, increase Valsartan dose to 320 mg daily. He is currently taking 160 mg daily. He can check labs in a few days after the dose increase. He states his nifedipine dose has also been increased through his own PCP yesterday. With regard to the aortic murmur, get an echocardiogram. We will try to arrange for today. We will see him in a few days for follow-up. Orders: Orders CA echo transthoracic complete Today I10 - Essential (primary) hypertension, I35.9 - Nonrheumatic aortic valve disorder, unspecified Medications: New valsartan 320 mg PO DAILY 90 tabs 3RF Coding Level of Care Code New Pt Level 4 (57914) Diagnoses Aortic valve disease I35.9 Uncontrolled hypertension I10
== END 2024-04-22 11:44 | disposition home or self-care (01) ==
PROVIDERS: PCP Internal Medicine; Visit Provider Internal Medicine
DX: I35.9 Nonrheumatic aortic valve disorder, unspecified (principal); I10 Essential (primary) hypertension
CPT/HCPCS: 93306; 99214

== ENCOUNTER → 2024-04-22 10:56 | Outpatient (BNVA) | payer MEDICARE, SELFPAY | PROVIDERS: PCP Internal Medicine; Visit Provider Internal Medicine | DX: I35.0 Nonrheumatic aortic (valve) stenosis (principal); I10 Essential (primary) hypertension | CPT/HCPCS: 99212 ==

== ENCOUNTER → 2024-04-22 14:48 | Outpatient (REF) | payer MEDICARE, SELFPAY ==
--- NOTE | 2024-04-22 14:52 | CA_ITS ---
Transthoracic Echocardiogram Patient (Last, First, Middle): Romie Limon L Gender: Male Date of : 1955 Age: 68 Procedure Date: 04/22/2024 Procedure Type: Transthoracic Echocardiogram Location: OP Height: 172.72 cm Weight: 79.38 kg BSA: 1.93 m2 Heart Rate: bpm BP: 115 / 60 mmHg Supervisor Cigar Processing: Referring MD: Humberto Ramachandran MD Symptoms: I35.9 - Nonrheumatic aortic valve disorder, unspecified Study Quality: Good ECG Rhythm: Sinus Conclusions: - The left ventricular systolic function is normal. The calculated ejection fraction is 55% by biplane method. - The basal inferior segment is akinetic. - There is mild to moderate aortic valve regurgitation. Findings Left Ventricle Normal left ventricular cavity size. There is mildly increased left ventricular wall thickness. The left ventricular systolic function is normal. The calculated ejection fraction is 55% by biplane method. There is evidence of regional wall motion abnormalities. Evidence suggests grade I (mild) diastolic dysfunction. Wall Motion Rest Echo Findings The basal inferior segment is akinetic. Right Ventricle Normal right ventricular cavity size and systolic function. Atria The left atrium is mildly dilated. The right atrium is normal in size. Aortic Valve There is a normal trileaflet aortic valve. There is no aortic valve stenosis. There is mild to moderate aortic valve regurgitation. Mitral Valve The mitral valve appears normal. There is trace mitral valve regurgitation. There is no mitral valve stenosis. Pulmonic Valve The pulmonic valve is likely normal. Tricuspid Valve There is trace tricuspid valve regurgitation. There is no evidence of pulmonary hypertension. Great Vessels There is mild dilatation of the ascending aorta measuring 3.90 cm. Venous The inferior vena cava is normal in size and collapses greater than 50% with inspiration. Pericardium/Pleural There is no evidence of pericardial effusion. Prior Study Comparison No prior study available for comparison. Measurements 2D Linear Measurements IVSd: 1.12 0.6-0.9/0.6-1.0 cm LVIDd: 5.37 3.9-5.3/4.2-5.9 cm LVIDd Index: 2.78 2.4-3.2/2.2-3.1 cm/m2 LVIDs: 3.27 2.0-3.6 cm LVPWd: 1.16 0.7-1.1 cm Ao Root: 3.60 2.1-3.5 cm LA Diam: 3.80 2.7-3.8/3.0-4.0 cm LAIDs Index: 1.97 1.5-2.3 cm/m2 LV Mass: 304.56 67-162/88-224 g LV Mass Index: 157.80 43-95/49-115 g/m2 LVOT Diam: 2.20 3.0+(-)1.3 cm 2D Systolic Function EF 4C: 57.00 >55% EF 2C: 54.90 >55% EF BiP: 54.90 >55% Mitral Valve MV Pk E: 0.78 MV PK A: 1.22 MV Decel Time: 140.00 E/A: 0.60 E'Lateral: 4.57 E'Medial: 2.83 E/E' Med: 27.40 E/E' Lat: 17.00 PHT: 41.00 MVA PHT: 5.37 Decel Lyman: 5.56 Aortic Valve AoV Pk Gamal: 2.07 AoV Mn Gamal: 1.37 AoV VTI: 0.47 AoV Pk Grad: 17.00 Aov Mn Grad: 9.00 ESTIVEN Cont.VTI: 2.34 LVOT LVOT Pk Gamal: 1.22 LVOT Mn Gamal: 0.85 LVOT VTI: 0.29 LVOT Pk Grad: 6.00 LVOT Mn Grad: 3.00 LVOT Diam: 2.20 LVOT Area: 3.80 Diastolic Function MV Pk E: 0.78 MV Pk A: 1.22 E/A: 0.60 E'Medial: 2.83 E/E' Med: 27.40 E' Laterial: 4.57 E/E' Lat: 17.00 Right Ventricle TAPSE (mm): 33.00 Tricuspid Valve TR Pk Gamal: 2.66 TR Pk Grad: 28.00 RA Press: 3.00 Great Vessels Aorta Ao Root-2D: 3.60 2.0-3.7 cm Ao Asc: 3.90 2.1-3.4 cm Pulmonary Valve PV Pk Gamal: 1.16 Peak PV Grad: 5.00 Updated in Other Vendor System with Status of Final Humberto Ramachandran MD electronically signed on 04/24/2024 10:29:53 AM with status of Final
== END ==
LOC: HO.CARD 14:48
PROVIDERS: PCP Internal Medicine; Visit Provider Internal Medicine
DX: I35.9 Nonrheumatic aortic valve disorder, unspecified (principal); I10 Essential (primary) hypertension
CPT/HCPCS: 93306

== ENCOUNTER 2024-04-25 14:18 | Outpatient (AMB) | payer MEDICARE, SELFPAY ==
[2024-04-25 14:21] VITALS: BP 220/100; PULSE 87; BMI 26.1
--- NOTE | 2024-04-25 14:21 | A.OFFVIS_ITS ---
Vital Signs 04/25/24 14:21 Height 5 ft 8 in Weight 171 lb 15.369 oz BMI 26.1 BP 220/100 H Pulse 87 Pulse Source Pulse Oximeter Intake Visit Reasons: follow up echo Allergies No Known Allergies [No Known Allergies*] Allergy (Verified 04/21/24 17:16) Medication List - Last Reconciled 04/25/24 by Humberto Ramachandran MD lorazepam 0.5 mg PO TID PRN nifedipine ER 60 mg PO DAILY omeprazole 20 mg PO DAILY tadalafil 20 mg PO DAILY 30 days valsartan 320 mg PO DAILY HPI Comments Details: Romie returns for follow-up. He was seen in consultation on Thursday. It was felt by his PCP that EKG had shown ST elevation and hence he referred him to the ER. Troponins were unremarkable and then he was sent home. After being seen in the clinic, it was felt that his blood pressure being so high was possibly the main issue and hence meds were adjusted. We had increased the valsartan dosing. He had an echocardiogram. He returns for follow-up today. He states he feels fine but very anxious. Today's blood pressure is even higher and not clear how much of it is from anxiety. Otherwise, no cardiac symptoms like angina or shortness of breath. Per patient history, can bicycle more than 20 miles with no issues. No previous history of any myocardial infarction or cardiomyopathy. Long history of poorly controlled hypertension. Per patient, the last few days home blood pressures are somewhere in the 160s to 170s extra. Not this high. [facility] Medical History Elevated PSA BPH (benign prostatic hyperplasia) Hypogonadism in male Elevated PSA Anxiety Retention of urine Elevated blood pressure reading in office with diagnosis of hypertension Surgical History H/O colonoscopy History of transurethral resection of prostate Family History (Updated 04/22/24 @ 11:02 by Cesilia Agrawal CMA) Mother Breast cancer Father Heart attack Social History Alcohol intake: current Alcohol intake frequency: holidays/special occasions only Patient Tobacco Use Status: Never used Tobacco Review of Systems Const Denies weakness ENT Denies dizziness Card Denies chest pain, Denies chest pain with activity, Denies syncope, Denies rapid heart rate, Denies pedal edema, Denies edema, Denies leg edema, Denies lightheadedness, Denies palpitations, Denies dyspnea, Denies dyspnea on exertion and Denies orthopnea Resp Denies cough, Denies dyspnea and Denies dyspnea on exertion GI Denies hematochezia and Denies change in stool character Musc Denies abnormal gait, Denies muscle cramps, Denies muscle weakness, Denies numbness, Denies radiating pain into limb and Denies tingling Neuro Denies Abnormal speech present, Denies abnormal gait, Denies dizziness, Denies syncope, Denies numbness, Denies tingling and Denies weakness Endo Denies palpitations Physical Exam Vital Signs: Last Vital Signs Pulse 87 04/25/24 14:21 BP 220/100 H 04/25/24 14:21 BMI result Body Mass Index 26.1 Const General: comfortable and no acute distress Orientation/consciousness: patient oriented x3 HEENT Other: Unremarkable Head: Yes normal to inspection Neck Neck: Yes normal visual inspection Chest Chest palpation & inspection: normal inspection of the chest Resp Auscultation: clear to auscultation bilaterally Cardio Palpation: normal PMI Heart sounds: S1 normal heart sound present, S2 normal heart sound present, no gallops, Murmur heart sound present diastolic and systolic and no rubs GI Palpation (GI): Soft to palpation Back/Spine/Pelvis Other: unremarkable Skin General skin exam: no rashes or lesions noted Neuro General: patient oriented x3 Speech: No Abnormal speech present Extrem General: Yes normal to inspection Psych Mental Status: mental status grossly normal Assessment & Plan Assessment & Plan (1) Uncontrolled hypertension: Code(s): I10 - Essential (primary) hypertension Category: Medical Plan: Long history of poorly controlled hypertension which is made worse by acute anxiety in clinic. Tried to reassure him but he still seems quite anxious. Within the last few days, med adjustments have been made. The nifedipine ER dose has been increased by his own PCP. We had increased the dose of valsartan. He can check BMP this week. Otherwise, add beta-blockers, carvedilol 12.5 mg b.i.d. which should help with some anxiety relief as well as blood pressure. Next step would be to just go up on the carvedilol further to 25 mg b.i.d. and consider adding other medications like diuretics/spironolactone or hydralazine. In due course, may also need evaluation for renal artery stenosis. I advised him to avoid any form of strenuous activity and just rest at home. Advised him to start the medication right away without delay. Also advised him to contact us tomorrow with readings. We discussed about going to ER but he states he would rather just go home. Considering his anxiety, also ER might just make him more anxious and make things worse rather. (2) Nonrheumatic aortic valve regurgitation: Code(s): I35.1 - Nonrheumatic aortic (valve) insufficiency Category: Medical Plan: In the echocardiogram, trileaflet aortic valve with [id number] aortic regurgitation. Preserved LVEF at 55%. Could be all from poorly controlled hypertension. Will need to be followed periodically. (3) Atherosclerotic cardiovascular disease: Code(s): I25.10 - Atherosclerotic heart disease of [place] coronary artery without angina pectoris Category: Medical Plan: In the echocardiogram, basal inferior wall is akinetic. Could reflect underlying CAD but he does not have any symptoms at all. Possibly get a coronary CTA in future. Would like his blood pressure regulated before scheduling that. Plan Patient to call tomorrow with blood pressures and also will come for nurse visit for blood pressure check this week. Orders: Orders Basic Metabolic Panel Today I10 - Essential (primary) hypertension Medications: New carvedilol (Coreg) must administer with a meal/food 12.5 mg PO BID 60 tabs 5RF 30 days Coding Level of Care Code Est Pt Level 4 (56697) Diagnoses Uncontrolled hypertension I10 Nonrheumatic aortic valve regurgitation I35.1 Atherosclerotic cardiovascular disease I25.10
== END 2024-04-25 14:45 | disposition home or self-care (01) ==
PROVIDERS: PCP Internal Medicine; Visit Provider Internal Medicine
DX: I10 Essential (primary) hypertension (principal); I35.1 Nonrheumatic aortic (valve) insufficiency; I25.10 Atherosclerotic heart disease of native coronary artery without angina pectoris
CPT/HCPCS: 99214

== ENCOUNTER → 2024-04-25 14:18 | Outpatient (BNVA) | payer MEDICARE, SELFPAY | PROVIDERS: PCP Internal Medicine; Visit Provider Internal Medicine | DX: I10 Essential (primary) hypertension (principal); I35.1 Nonrheumatic aortic (valve) insufficiency; I25.10 Atherosclerotic heart disease of native coronary artery without angina pectoris | CPT/HCPCS: 99212 ==

== ENCOUNTER 2024-04-28 08:35 | Outpatient (REF) | payer MEDICARE, SELFPAY ==
[2024-04-28 10:04] LABS: Anion Gap 11 (12-20); Blood Urea Nitrogen 15 mg/dL (9-16); Calcium 9.1 mg/dL (8.4-10.2); Carbon Dioxide 26 mmol/L (22-29); Chloride 107 mmol/L (96-108); Estimated Glomerular Filt Rate > 60; Glucose Random 115 mg/dL (60-115); Potassium 4.2 mmol/L (3.3-5.1); Sodium 140 mmol/L (135-145)
== END 2024-04-28 08:36 | disposition home or self-care (01) ==
LOC: HO.LAB 08:35
PROVIDERS: PCP Internal Medicine; Visit Provider Internal Medicine
DX: I10 Essential (primary) hypertension (principal)
CPT/HCPCS: 36415; 80048

== ENCOUNTER → 2024-05-04 13:00 | Outpatient (BNVA) | payer MEDICARE, SELFPAY | PROVIDERS: PCP Internal Medicine; Visit Provider Internal Medicine ==

== ENCOUNTER 2024-05-18 08:24 | Outpatient (REF) | payer MEDICARE, SELFPAY ==
--- NOTE | ~2024-05-18 | US_ITS ---
EXAMINATION: ULTRASOUND OF KIDNEYS WITH RENAL ARTERY DOPPLER CLINICAL INFORMATION: Hypertension. COMPARISON: None available. TECHNIQUE: Ultrasound of the kidneys was performed along with color flow Doppler imaging and velocity measurements in the proximal mid and distal renal arteries. Aortic velocities were measured and renal/aortic ratios were calculated. Segmental resistive indices were calculated. FINDINGS: The kidneys appeared normal with the right kidney measuring 10.6 x 4.9 x 5.2 cm and the left kidney measuring 10.7 x 4.3 x 4.6 cm. No renal masses, renal stones or hydronephrosis is seen. Renal cortical thickness appears normal. Velocity measurements in the proximal mid and distal renal arteries are with the exception of a single borderline elevated velocity in the mid right renal artery of 185 cm/s (upper limit of normal is 80 cm/s). Velocity in the aorta is 113 cm/s and this is greater than 100 cm/s, this cannot be used to calculate renal aortic ratio. Segmental resistive indices were minimally elevated bilaterally ranging from 0.79-0.89 on the right and 0.8-0.86 on the left; upper limits of normal is 0.80. US/US renal doppler IMPRESSION: No convincing evidence to suggest renal artery stenosis. Electronically signed by: Harshal Tavera MD 06/15/2024 12:06 AM EDT
--- NOTE | ~2024-05-18 | US_ITS ---
EXAMINATION: ULTRASOUND OF KIDNEYS WITH RENAL ARTERY DOPPLER CLINICAL INFORMATION: Hypertension. COMPARISON: None available. TECHNIQUE: Ultrasound of the kidneys was performed along with color flow Doppler imaging and velocity measurements in the proximal mid and distal renal arteries. Aortic velocities were measured and renal/aortic ratios were calculated. Segmental resistive indices were calculated. FINDINGS: The kidneys appeared normal with the right kidney measuring 10.6 x 4.9 x 5.2 cm and the left kidney measuring 10.7 x 4.3 x 4.6 cm. No renal masses, renal stones or hydronephrosis is seen. Renal cortical thickness appears normal. Velocity measurements in the proximal mid and distal renal arteries are with the exception of a single borderline elevated velocity in the mid right renal artery of 185 cm/s (upper limit of normal is 80 cm/s). Velocity in the aorta is 113 cm/s and this is greater than 100 cm/s, this cannot be used to calculate renal aortic ratio. Segmental resistive indices were minimally elevated bilaterally ranging from 0.79-0.89 on the right and 0.8-0.86 on the left; upper limits of normal is 0.80. US/US renal BI IMPRESSION: No convincing evidence to suggest renal artery stenosis. Electronically signed by: Harshal Tavera MD 06/15/2024 12:06 AM EDT
[2024-05-18 12:22] LABS: Anion Gap 11 (12-20); Blood Urea Nitrogen 19 mg/dL (9-16); Carbon Dioxide 28 mmol/L (22-29); Chloride 105 mmol/L (96-108); Estimated Glomerular Filt Rate > 60; Glucose Random 112 mg/dL (60-115); Sodium 140 mmol/L (135-145)
== END 2024-05-18 08:25 | disposition home or self-care (01) ==
LOC: HO.HMGCX 08:24
PROVIDERS: PCP Internal Medicine; Visit Provider Internal Medicine
DX: I70.1 Atherosclerosis of renal artery (principal); I10 Essential (primary) hypertension
CPT/HCPCS: 36415; 76775; 80048; 93975

== ENCOUNTER 2024-06-16 13:43 | Outpatient (AMB) | payer MEDICARE, SELFPAY ==
[2024-06-16 13:45] VITALS: BP 170/58; PULSE 80; BMI 26.1
--- NOTE | 2024-06-16 13:45 | MHC.OFFVIS ---
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 We made several adjustments for blood pressure recently. Overall, he states he feels very well. No cardiac symptoms whatsoever. He has lot of anxiety at baseline. Today's blood pressure is high but he states that home blood pressures are much lower. In fact from the readings he has brought, essentially normal range. Otherwise, no known coronary disease myocardial infarction or cardiomyopathy. Long history of hypertension, suspect poorly controlled. He is fairly active at baseline and he was doing as much as 20 miles of bicycling without any issues still recently. Otherwise, feels well. [facility] Medical History Elevated PSA BPH (benign prostatic hyperplasia) Hypogonadism in male Elevated PSA Anxiety Retention of urine Elevated blood pressure reading in office with diagnosis of hypertension Surgical History H/O colonoscopy History of transurethral resection of prostate Family History Mother Breast cancer Father Heart attack Social History Alcohol intake: current Alcohol intake frequency: holidays/special occasions only Patient Tobacco Use Status: Never used Tobacco Review of Systems Const All systems reviewed & are unremarkable except as noted in HPI and below Reports as per HPI and Reports no additional complaints Eyes Reports as per HPI and Denies no additional complaints ENT Denies no additional complaints and Reports as per HPI Card Reports as per HPI, Reports no additional complaints, Denies acrocyanosis, Denies chest pain, Denies leg edema, Denies lightheadedness, Denies palpitations and Denies dyspnea Resp Reports as per HPI, Denies no additional complaints and Denies dyspnea GI Reports as per HPI and Denies no additional complaints Reports no additional complaints and Reports as per HPI Musc Reports no additional complaints and Reports as per HPI Skin/Breast Reports system reviewed and no additional complaints, except as documented Neuro Reports no additional complaints and Reports as per HPI Psych Reports no additional complaints and Reports as per HPI Endo Reports no additional complaints, Reports as per HPI and Denies palpitations Rohan/Lymph Reports no additional complaints and Reports as per HPI Aller/Immun Reports no additional complaints and Reports as per HPI Physical Exam Vital Signs: Last Vital Signs Pulse 80 06/16/24 13:45 BP 170/58 H 06/16/24 13:45 BMI result Body Mass Index 26.1 Const General: comfortable and no acute distress Orientation/consciousness: patient oriented x3 HEENT Other: Unremarkable Head: Yes normal to inspection Neck Neck: Yes normal visual inspection Chest Chest palpation & inspection: normal inspection of the chest Resp Auscultation: clear to auscultation bilaterally Cardio Palpation: normal PMI Heart sounds: S1 normal heart sound present, S2 normal heart sound present, no gallops, no murmurs and no rubs GI Palpation (GI): Soft to palpation Back/Spine/Pelvis Other: unremarkable Skin General skin exam: no rashes or lesions noted Neuro General: patient oriented x3 Extrem General: Yes normal to inspection Psych Mental Status: mental status grossly normal Assessment & Plan Assessment & Plan (1) Uncontrolled hypertension: Code(s): I10 - Essential (primary) hypertension Category: Medical Plan: Current regimen includes carvedilol, nifedipine, valsartan, hydrochlorothiazide at essentially maximal doses. Clinic blood pressure high but home blood pressures are normal-multiple readings. He blames it on anxious getting here. It may very well be the case. Renal ultrasound without any evidence of renal artery stenosis. Do not suspect secondary hypertension. He is complaining of some low back pain and not entirely clear what that is. May check ultrasound for any abdominal aortic aneurysm. (2) Nonrheumatic aortic valve regurgitation: Code(s): I35.1 - Nonrheumatic aortic (valve) insufficiency Category: Medical Plan: In the echocardiogram, trileaflet aortic valve with [id number] aortic regurgitation. Preserved LVEF at 55%. Could be all from poorly controlled hypertension. Will need to be followed periodically. (3) Atherosclerotic cardiovascular disease: Code(s): I25.10 - Atherosclerotic heart disease of [place] coronary artery without angina pectoris Category: Medical Plan: In the echocardiogram, basal inferior wall is akinetic. Could reflect underlying CAD but he does not have any symptoms at all. Obtain coronary CTA. Orders: Orders Basic Metabolic Panel Today I25.10 - Atherosclerotic heart disease of [place] coronary artery without angina pectoris CT Cardiac Coronary Angio Today I25.10 - Atherosclerotic heart disease of [place] coronary artery without angina pectoris abdominal aortic aneurysm Today I71.40 - Abdominal aortic aneurysm, without rupture, unspecified Coding Level of Care Code Est Pt Level 4 (11729) Diagnoses Uncontrolled hypertension I10 Nonrheumatic aortic valve regurgitation I35.1 Atherosclerotic cardiovascular disease I25.10
== END 2024-06-16 14:12 | disposition home or self-care (01) ==
PROVIDERS: PCP Internal Medicine; Visit Provider Internal Medicine
DX: I10 Essential (primary) hypertension (principal); I35.1 Nonrheumatic aortic (valve) insufficiency; I25.10 Atherosclerotic heart disease of native coronary artery without angina pectoris
CPT/HCPCS: 99214

== ENCOUNTER → 2024-06-16 13:43 | Outpatient (BNVA) | payer MEDICARE, SELFPAY | PROVIDERS: PCP Internal Medicine; Visit Provider Internal Medicine | DX: I10 Essential (primary) hypertension (principal); I35.1 Nonrheumatic aortic (valve) insufficiency; I25.10 Atherosclerotic heart disease of native coronary artery without angina pectoris | CPT/HCPCS: 99212 ==

== ENCOUNTER 2024-07-07 08:23 | Outpatient (REF) | payer MEDICARE, SELFPAY ==
--- NOTE | ~2024-07-07 | US_ITS ---
EXAMINATION: US RETROPERITONEAL LIMITED (AORTA) CLINICAL INFORMATION: Abdominal aortic aneurysm. COMPARISON: None available. TECHNIQUE: Fay-scale, color Doppler and spectral Doppler evaluation of the abdominal aorta. FINDINGS: There is atherosclerotic disease. The measurements of the aorta in maximum AP and transverse dimensions respectively are as follows: Proximal: 3.2 x 2.8 cm. Mid: 2.0 x 1.9 cm. Distal: 1.9 x 1.8 cm. PSV: 123 cm/s. The measurements of the common iliac arteries in maximum AP and TRV dimensions are as follows: Right Common Iliac Artery: 1.3 cm. Left Common Iliac Artery: 1.1 cm. US/US abdominal aortic aneurysm IMPRESSION: No abdominal aortic or iliac artery aneurysm. Elevated velocity in the aorta suggests hypertension. Electronically signed by: Donita Aguirre MD 07/10/2024 02:25 PM EDT
== END 2024-07-07 08:24 | disposition home or self-care (01) ==
LOC: HO.HMGCX 08:23
PROVIDERS: PCP Internal Medicine; Visit Provider Internal Medicine
DX: I71.40 Abdominal aortic aneurysm, without rupture, unspecified (principal)
CPT/HCPCS: 76706

== ENCOUNTER → 2024-09-05 08:07 | Outpatient (REF) | payer MEDICARE, SELFPAY ==
--- NOTE | ~2024-09-05 | NM_ITS ---
EXERCISE MYOCARDIAL PERFUSION STUDY INDICATION: Precordial chest pain to evaluate for myocardial ischemia TECHNIQUE: The patient was brought in for an exercise perfusion study on 09/05/2024 . Patient performed exercise as per Shane protocol and was injected 25 mCi of sestamibi once target heart rate was achieved. Images were obtained using the SPECT gamma camera interlaced with the gating device. Images were obtained in supine position. Resting perfusion study was performed on 09/06/2024. Patient was administered 25 mCi of sestamibi intravenously at rest. Images were then obtained in supine position. Images obtained without without CT attenuation. Total DLP 127 mGy-cm. Images were processed with the software and compared side to side in short axis, horizontal long axis and vertical long axis views. FINDINGS: Raw images were reviewed. Stress perfusion images are suboptimal due to intense subdiaphragmatic uptake in the liver interferences with inferior wall uptake as well as left arm down position and affects lateral wall uptake. Rest perfusion study is suboptimal due to intense subdiaphragmatic uptake in the liver and the stomach which interferes with inferior wall uptake as well as left down position which affects the lateral wall uptake. The stress perfusion study showed nonattenuated images show mildly reduced uptake in the distal inferolateral wall of the LV myocardium. There is also mildly reduced uptake in the inferior wall of the LV myocardium. Remainder of the LV myocardium is normally perfused. Attenuated images show mildly reduced uptake in the inferoapical wall of the LV myocardium with nonspecific reduction in the basal inferior wall.. The gated study shows normal LV systolic function with calculated LVEF of 58%. LV cavity is normal in size. The gated study shows normal systolic wall thickening and contraction of segments. Resting study shows nonattenuated images show improved uptake in the distal inferolateral wall as well as attenuated corrected images show improved uptake in the inferoapical wall of the LV myocardium.. Gating at rest reveals normal systolic wall motion with ejection fraction at greater than 55%. The findings are consistent with equivocal for possible small area all reversible defect of the inferoapical wall suggestive of ischemia.. NM/NM cardiolite stress test IMPRESSION: 1. Myocardial perfusion imaging study shows suboptimal testing due to intense subdiaphragmatic uptake related to small area of reversible defect equivocal for ischemia of the inferoapical wall.. 2. Gated LVEF is 58%. 3. Transient ischemic dilatation not present. EKG revealed negative for ischemia. Electronically signed by: Benedict Dumont MD 09/06/2024 03:49 PM [facility]
--- NOTE | 2024-09-05 08:09 | CA_ITS ---
Acquisition Time: 2024-09-05 08:54:00 Total Exercise Time: 00:07:59 Test Indications: CP Medications: CARVEDILOL HCTZ LORAZAPAM NIFEDIPINE OMEPRAZOLE TADAFIL VALSARTAN Protocol: RENÉE Max HR: 137 BPM 90% of Pred: 151 BPM Max BP: 156/080 mmHG Max Work Load: 10.0 METS Exercise Stress Test with exercise 7 mins 59 secs of Renée Protocol, achieving 90% MPHR, with mild SOB, no chest discomfort, with frequent PACs and isolated PVCs, with normotensive response to exercise. Without EKG changes meeting criteria for ischemia. Nuclear images pending. In recovery, breathing back to baseline. Test reviewed with Dr. Dumont. Referred By: Humberto Ramachandran Overread By: TOMAS VANCE
--- OUTSIDE RECORDS SUMMARY | 2024-09-07 12:48 | XMS_ITS | Patient Health Record ---
Author Organization [facility] Address [address] [place] [address] Care Team Providers Care Journeyman Molder Name Role Phone Jam Goldberg MD Primary Care Provider UnavailLanden Short Unavailable [phone] Allergies No Known Allergies Reason For Referral No Information Medications Medication SIG (Take, Route, Frequency, Duration) Notes Start Date End Date Status LORazepam 0.5 MG 1 tablet at bedtime as needed Orally Once a day 05/16/2020 Active Afeditab CR 30 MG 1 tablet Orally Once a day Active Naproxen 500 MG 1 tablet with food o r milk as needed Orally every 12 hrs 05/16/2020 Not-Taking Sulindac 200 MG 1 tablet with food O rally Twice a day Not-Taking Tamsulosin HCl 0.4 MG 1 capsule 30 minut es after the same meal each day Orally Once a day Active Lisinopril 10 MG 1 tablet Orally Once a day Active Valsartan 160 MG 1 tablet Orally Once a day for 30 day(s) 05/16/2020 Active NIFEdipine 30 MG Act demarcus Social History Tobacco Use: Social History Observation Description Date Details (start date - stop date) Never Smoker NA - NA Tobacco Use/Smoking Question Answer Notes Are you a: nonsmoker Additional Findings: Tobacco Non-User Current no n-smoker Alcohol Screen Question Answer Notes Did you have a drink containing alcohol in the p ast year? Yes Points 0 Interpretation Negative Tobacco use other than smoking: Question Answer Notes Are you an other tobacco user? No Plan Of Treatment Pending Test Test Name Order Date X ray : Foot, right 2V 03/08/2014 X ray : Foot, right 3V 05/29/2022 Insurance Providers Payer Name Payer Address Payer Phone Subscriber Number Group Number Insured Name Patient Relationship to Insured Coverage Start Date Coverage End Date [facility] 65 Medicare [address] [place] [address] [id number] Romie Joshi Self - patient is the insured Medical (General) History Medical History History ICD Code Anxiety High blood pressure Mumps Measles Chicken pox Cataracts Surgical History Surgery Date(Month/Year) detached retina 09/2004
== END ==
LOC: HO.CARD 08:07
PROVIDERS: PCP Internal Medicine; Visit Provider Internal Medicine
DX: R07.2 Precordial pain (principal); I25.10 Atherosclerotic heart disease of native coronary artery without angina pectoris
CPT/HCPCS: 78452; 93017; A9500

== ENCOUNTER → 2024-09-05 08:09 | Outpatient (BNV) | payer MEDICARE, SELFPAY | PROVIDERS: PCP Internal Medicine; Visit Provider Nurse Practitioner Family | DX: R06.02 Shortness of breath (principal); I49.1 Atrial premature depolarization; I49.3 Ventricular premature depolarization | CPT/HCPCS: 78452; 93016; 93018 ==

== ENCOUNTER 2024-10-21 14:46 | Outpatient (REF) | payer MEDICARE, SELFPAY ==
--- OUTSIDE RECORDS SUMMARY | 2024-10-21 16:09 | XMS_ITS | Patient Health Record ---
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
== END 2024-10-21 14:47 | disposition home or self-care (01) ==
LOC: HO.LAB 14:46
PROVIDERS: PCP Internal Medicine; Visit Provider Urology
DX: N40.0 Benign prostatic hyperplasia without lower urinary tract symptoms (principal); Z12.5 Encounter for screening for malignant neoplasm of prostate
CPT/HCPCS: 36415; 84153

== ENCOUNTER 2024-10-27 09:25 | Outpatient (AMB) | payer MEDICARE, SELFPAY ==
--- NOTE | 2024-10-27 09:25 | A.OFFVIS_ITS ---
Intake Visit Reasons: 1Y PSA(SET) Intake Note: Patient presents today for 1Y follow-up on: PSA Meds- Tadalafil Allergies to Antibiotic- No Known Allergies Blood Thinner- None Senior Patrol Agent Required: No Allergies No Known Allergies [No Known Allergies*] Allergy (Verified 10/27/24 09:25) HPI Comments Details: Romie is a pleasant male. He is a patient of Dr. Goldberg. He is seen for the following urologic conditions - elevated PSA - lower urinary tract symptoms - erectile dysfunction Telemedicine evaluation 15 minute consultation C3 Jian chavo Video Yearly follow-up PSA remained stable Has been placed on maximal BP meds in setting of leaky valve Has erectile side effects from coreg Lower urinary tract symptoms Previous intervention with laser prostatectomy 2015 Good urinary stream and emptying Nocturia x1 Prior biopsy negative PSA 10/17 3.2, 10/18 2.9, 09/17 4.5 F 20% 03/19 3.7, 09/18 3.9, 04/19 3.2, 10/21 3.5, 10/22 3.6 Erectile dysfunction Responsive to oral medications Tadalafil 20 mg on demand PFSH Medical History Elevated PSA BPH (benign prostatic hyperplasia) Hypogonadism in male Elevated PSA Anxiety Retention of urine Elevated blood pressure reading in office with diagnosis of hypertension Surgical History H/O colonoscopy History of transurethral resection of prostate Family History Mother Breast cancer Father Heart attack Social History Alcohol intake: current Alcohol intake frequency: holidays/special occasions only Patient Tobacco Use Status: Never used Tobacco Review of Systems Const All systems reviewed & are unremarkable except as noted in HPI and below Reports no additional complaints Resp Reports no additional complaints GI Reports no additional complaints Reports as per HPI Musc Reports no additional complaints Physical Exam Telemedicine evaluation Appropriate responses Regular breathing rate and rhythm HEENT Head: Yes normal to inspection Ears: hearing grossly normal bilaterally Eyes General: appearance normal, both eyes and all related structures Neck Neck: Yes normal visual inspection Chest Chest palpation & inspection: normal inspection of the chest Resp Effort & Inspection: normal respiratory effort and able to speak in complete sentences Telehealth Telehealth Location of provider rendering services: practice address Location of patient: address on file Patient Identification confirmed using: Name, : Yes Telehealth method: voice only Patient verbally consented to treatment: Yes Patient verbally consented to billing insurance company: Yes Patient informed of any privacy concerns related to visit: Yes Assessment & Plan Assessment & Plan (1) BPH (benign prostatic hyperplasia): Comment: Laser 2015 Code(s): N40.0 - Benign prostatic hyperplasia without lower urinary tract symptoms Category: Medical Qualifiers: Lower urinary tract symptom presence: symptoms absent Qualified Code(s): N40.0 - Benign prostatic hyperplasia without lower urinary tract symptoms (2) Erectile dysfunction: Code(s): N52.9 - Male erectile dysfunction, unspecified Category: Medical Plan May increase tadalafil to 40 mg Medications: Refilled tadalafil 20 mg PO DAILY 30 days 30 tabs 6RF Patient Instructions: Imaging studies, laboratory and physical exam results were discussed and reviewed in detail. No major barriers to patient understanding were identified. An opportunity to ask questions regarding the treatment plan was provided. All questions were answered. The patient expressed understanding and agreement with the above treatment plan. The patient is aware they should contact our office by phone for worsening of their current condition or the appearance of new urologic symptoms. Compliance is encouraged with any medications and followup testing that is ordered. It is a privilege to participate in the urologic care of your patient. If you have any questions or concerns regarding treatment for the above conditions, or other urologic issues, please do not hesitate to contact me. The office telephone contact is [phone]. This note is constructed using voice recognition software. While every effort has been made to ensure accuracy merchandise stocker errors may have been included. Yours sincerely, Dr Manuel Salter MD, [facility] - Urology Providers of Expert, Compassionate Care for the Genitourinary System Coding Level of Care Code Tele Est Pt Level 4 (32836) Diagnoses Benign prostatic hyperplasia without lower urinary tract symptoms N40.0 Lower urinary tract symptom presence: symptoms absent Erectile dysfunction N52.9
--- OUTSIDE RECORDS SUMMARY | 2024-10-27 12:32 | XMS_ITS | Patient Health Record ---
Author Organization [facility] Address [address] [place] [address] Care Team Providers Care Ruby On Rails Web Developer Name Role Phone Jam Goldberg MD Primary Care Provider UnavailLanden Short Unavailable [phone] Allergies No Known Allergies Reason For Referral [...] Insured Coverage Start Date Coverage End Date [facility] 64 Medicare [address] [place] [address] [id number] Romie Joshi Self - patient is the insured Medical (General) History Medical History History ICD Code Anxiety High blood pressure Mumps Measles Chicken pox Cataracts Surgical History Surgery Date(Month/Year) detached retina 09/2004
== END 2024-10-27 14:56 | disposition home or self-care (01) ==
LOC: HO.HUSH 09:25
PROVIDERS: PCP Internal Medicine; Visit Provider Urology
DX: N40.0 Benign prostatic hyperplasia without lower urinary tract symptoms (principal); N52.9 Male erectile dysfunction, unspecified
CPT/HCPCS: 99214

== ENCOUNTER 2024-11-22 13:02 | Outpatient (AMB) | payer MEDICARE, SELFPAY ==
--- NOTE | 2024-11-22 13:42 | MHC.OFFVIS ---
Vital Signs 11/22/24 13:44 Height 5 ft 8 in Weight 177 lb 11.081 oz BMI 27.0 BP 140/60 H Blood Pressure Location Rt brachial Position Sitting Pulse 71 Pulse Source Pulse Oximeter Intake Visit Reasons: f/up-testing, Program Lead Required: No Accompanied by: Spouse Allergies No Known Allergies [No Known Allergies*] Allergy (Verified 10/27/24 09:25) Medication List - Last Reconciled 11/22/24 by Humberto Ramachandran MD carvedilol (Coreg) 25 mg PO BID 90 days hydrochlorothiazide 25 mg PO DAILY lorazepam 0.5 mg PO TID PRN nifedipine ER 60 mg PO BID omeprazole 20 mg PO DAILY tadalafil 20 mg PO DAILY 30 days valsartan 160 mg PO BID HPI Comments Details: Romie returns for follow-up regarding high blood pressure. He had blood pressure very much into the 200s but after so many adjustments, it is much better. Clinic blood pressure is still high but he states it goes up because of anxiety coming here. Home blood pressures when I diary 8 in his smart phone or in the normal range. Rare palpitations. Nonspecific low back pain. We did screen him for abdominal aortic aneurysm and that was unremarkable. He is fairly active at baseline and he was doing as much as 20 miles of bicycling without any issues still recently. [facility] Medical History Elevated PSA BPH (benign prostatic hyperplasia) Hypogonadism in male Elevated PSA Anxiety Retention of urine Elevated blood pressure reading in office with diagnosis of hypertension Surgical History H/O colonoscopy History of transurethral resection of prostate Family History Mother Breast cancer Father Heart attack Social History Alcohol intake: current Alcohol intake frequency: holidays/special occasions only Patient Tobacco Use Status: Never used Tobacco Review of Systems Const Denies chills, Denies fatigue, Denies fever(s), Denies frequent falls, Denies weakness, Denies weight gain and Denies weight loss ENT Denies dizziness Card Denies chest pain, Denies leg edema, Denies lightheadedness, Denies palpitations, Denies dyspnea and Denies dyspnea on exertion Resp Denies cough, Denies dyspnea and Denies dyspnea on exertion GI Denies hematochezia Musc Denies abnormal gait, Denies muscle weakness, Denies numbness, Denies radiating pain into limb and Denies tingling Neuro Denies abnormal gait, Denies dizziness, Denies frequent falls, Denies numbness, Denies tingling and Denies weakness Endo Denies fatigue and Denies palpitations Physical Exam Vital Signs: Last Vital Signs Pulse 71 11/22/24 13:44 BP 140/60 H 11/22/24 13:44 BMI result Body Mass Index 27.0 Const General: comfortable and no acute distress Orientation/consciousness: patient oriented x3 HEENT Other: Unremarkable Head: Yes normal to inspection Neck Neck: Yes normal visual inspection Chest Chest palpation & inspection: normal inspection of the chest Resp Auscultation: clear to auscultation bilaterally Cardio Palpation: normal PMI Heart sounds: S1 normal heart sound present, S2 normal heart sound present, no gallops, Murmur heart sound present diastolic II/ and at the right sternal border and no rubs GI Palpation (GI): Soft to palpation Back/Spine/Pelvis Other: unremarkable Skin General skin exam: no rashes or lesions noted Neuro General: patient oriented x3 Extrem General: Yes normal to inspection Psych Mental Status: mental status grossly normal Assessment & Plan Assessment & Plan (1) Uncontrolled hypertension: Code(s): I10 - Essential (primary) hypertension Category: Medical Plan: Current regimen includes carvedilol, nifedipine, valsartan, hydrochlorothiazide at essentially maximal doses. Reviewed home diary in his smart phone and that shows mostly normal blood pressures. Do not really see any high readings. Hence most likely some component of white coat hypertension in addition to primary hypertension. Renal ultrasound without any evidence of renal artery stenosis. Do not suspect secondary hypertension. (2) Nonrheumatic aortic valve regurgitation: Code(s): I35.1 - Nonrheumatic aortic (valve) insufficiency Category: Medical Plan: In the echocardiogram, trileaflet aortic valve with [id number] aortic regurgitation. Preserved LVEF at 55%. Could be all from poorly controlled hypertension. We will follow up on echocardiogram. (3) Atherosclerotic cardiovascular disease: Code(s): I25.10 - Atherosclerotic heart disease of [place] coronary artery without angina pectoris Category: Medical Plan: Coronary CTA with multifocal stenosis in the LAD between the proximal to proximal portion of distal LAD-about 50%. Distally again about 50% stenosis. [id number] proximal RCA stenosis. Normal left main/circumflex. Findings discussed with patient and significant other. Check lipids. Can get statins after that. No angina. (4) Ascending aorta enlargement: Code(s): I77.89 - Other specified disorders of arteries and arterioles Category: Medical Plan: In the CTA, ascending aortic size 4/4.1 cm. Can follow periodically. Orders: Orders CA echo transthoracic complete 6 Months I35.1 - Nonrheumatic aortic (valve) insufficiency Lipid Panel Today E78.5 - Hyperlipidemia, unspecified Coding Level of Care Code Est Pt Level 4 (22739) Complex EM visit Add On G2211 Diagnoses Uncontrolled hypertension I10 Nonrheumatic aortic valve regurgitation I35.1 Atherosclerotic cardiovascular disease I25.10 Ascending aorta enlargement I77.89
[2024-11-22 13:44] VITALS: BP 140/60; PULSE 71; BMI 27.0
--- OUTSIDE RECORDS SUMMARY | 2024-11-22 15:59 | XMS_ITS | Patient Health Record ---
Author Organization [facility] Address [address] [place] [address] Care Team Providers Care Wind Instrument Repairer Name Role Phone Jam Goldberg MD Primary Care Provider UnavailLanden Short Unavailable [phone] Allergies No Known Allergies Reason For Referral [...] Insured Coverage Start Date Coverage End Date [facility] 65 Medicare [address] [place] [address] [id number] Romie Joshi Self - patient is the insured Medical (General) History Medical History History ICD Code Anxiety High blood pressure Mumps Measles Chicken pox Cataracts Surgical History Surgery Date(Month/Year) detached retina 09/2004
== END 2024-11-22 14:08 | disposition home or self-care (01) ==
PROVIDERS: PCP Internal Medicine; Visit Provider Internal Medicine
DX: I10 Essential (primary) hypertension (principal); I35.1 Nonrheumatic aortic (valve) insufficiency; I25.10 Atherosclerotic heart disease of native coronary artery without angina pectoris; I77.89 Other specified disorders of arteries and arterioles
CPT/HCPCS: 99214; G2211

== ENCOUNTER → 2024-11-22 13:02 | Outpatient (BNVA) | payer MEDICARE, SELFPAY | PROVIDERS: PCP Internal Medicine; Visit Provider Internal Medicine | DX: I10 Essential (primary) hypertension (principal); I35.1 Nonrheumatic aortic (valve) insufficiency; I25.10 Atherosclerotic heart disease of native coronary artery without angina pectoris; I77.89 Other specified disorders of arteries and arterioles; E78.5 Hyperlipidemia, unspecified | CPT/HCPCS: 99212 ==

== ENCOUNTER 2024-11-24 10:00 | Outpatient (REF) | payer MEDICARE, SELFPAY ==
[2024-11-24 11:30] LABS: Anion Gap 9 (12-20); Blood Urea Nitrogen 15 mg/dL (9-16); Calcium 8.9 mg/dL (8.4-10.2); Carbon Dioxide 30 mmol/L (22-29); Chloride 104 mmol/L (96-108); Cholesterol 164 mg/dL (<200); Estimated Glomerular Filt Rate > 60; Glucose Random 94 mg/dL (60-115); HDL Cholesterol 44 mg/dL (>40); LDL Cholesterol Calculated 105 mg/dL (<100); Potassium 3.9 mmol/L (3.3-5.1); Sodium 139 mmol/L (135-145); Triglycerides 79 mg/dL (<150)
--- OUTSIDE RECORDS SUMMARY | 2024-11-24 11:31 | XMS_ITS | Patient Health Record ---
Author Organization [facility] Address [address] [facility] [address] [place] [address] Care Team Providers Care Telecommunications Repairer Name Role Phone Jam Goldberg MD Primary Care Provider UnavailLanden Short Unavailable [phone] Allergies No Known Allergies Reason For Referral [...] Insured Coverage Start Date Coverage End Date [facility] 65 Medicare [address] [place] [address] [id number] Romie Joshi Self - patient is the insured Medical (General) History Medical History History ICD Code Anxiety High blood pressure Mumps Measles Chicken pox Cataracts Surgical History Surgery Date(Month/Year) detached retina 09/2004
== END 2024-11-24 10:01 | disposition home or self-care (01) ==
LOC: HO.LAB 10:00
PROVIDERS: PCP Internal Medicine; Visit Provider Internal Medicine
DX: I25.10 Atherosclerotic heart disease of native coronary artery without angina pectoris (principal); E78.5 Hyperlipidemia, unspecified
CPT/HCPCS: 36415; 80048; 80061

== ENCOUNTER 2024-11-28 14:19 | Outpatient (REF) | payer MEDICARE, SELFPAY ==
--- NOTE | ~2024-11-28 | XR_ITS ---
EXAMINATION: XR CHEST CLINICAL INFORMATION: RIGHT SIDE CHEST, BACK PAIN. COMPARISON: None available. TECHNIQUE: 2 views of the chest were obtained. FINDINGS: The lungs are well-expanded and clear acute process. Heart size and pulmonary vascularity is normal. There is mild spondylosis dorsal spine. No aggressive lytic or sclerotic process seen. XR/XR chest 2V IMPRESSION: Unremarkable chest exam Electronically signed by: Amarjit Jurado MD 11/29/2024 10:46 AM [facility]
--- OUTSIDE RECORDS SUMMARY | 2024-11-28 17:06 | XMS_ITS | Patient Health Record ---
Author Organization [facility] Address [address] [place] [address] Care Team Providers Care Title I Paraprofessional Name Role Phone Jam Goldberg MD Primary Care Provider UnavailLanden Short Unavailable [phone] Allergies No Known Allergies Reason For Referral [...] Insured Coverage Start Date Coverage End Date [facility] 65 Medicare [address] [place] [address] [id number] Romie Joshi Self - patient is the insured Medical (General) History Medical History History ICD Code Anxiety High blood pressure Mumps Measles Chicken pox Cataracts Surgical History Surgery Date(Month/Year) detached retina 09/2004
== END 2024-11-28 14:20 | disposition home or self-care (01) ==
LOC: HO.HMGCX 14:19
PROVIDERS: PCP Internal Medicine; Visit Provider Internal Medicine
DX: M54.9 Dorsalgia, unspecified (principal)
CPT/HCPCS: 71046

== ENCOUNTER → 2024-11-28 14:24 | Outpatient (BNV) | payer MEDICARE, SELFPAY | PROVIDERS: PCP Internal Medicine; Visit Provider Radiology Diagnostic Radiology | DX: R07.9 Chest pain, unspecified (principal) | CPT/HCPCS: 71046 ==

== ENCOUNTER 2025-01-24 10:19 | Outpatient (REF) | payer MEDICARE, SELFPAY ==
--- NOTE | ~2025-01-24 | XR_ITS ---
EXAMINATION: XR THORACIC SPINE CLINICAL INFORMATION: MID BACK PAIN COMPARISON: None available. TECHNIQUE: 3 views of the thoracic spine were obtained. FINDINGS: No significant scoliosis. There is a normal thoracic kyphosis. There is normal alignment without subluxation. No fractures, compression deformity, or suspicious bone lesions evident. Mild to moderate diffuse disc degeneration most significant involving the lower one third of the thoracic spine with small disc osteophytic spurs marginally. Normal facet alignment. The imaged cardiac, mediastinal, hilar, and bilateral lungs appear normal. No soft tissue abnormality. XR/XR thoracic spine 2V IMPRESSION: No acute findings of the thoracic spine. Mild to moderate diffuse spondylosis. Electronically signed by: Scott Perez MD 01/26/2025 10:38 AM EDT
--- NOTE | ~2025-01-24 | XR_ITS ---
EXAMINATION: XR LUMBOSACRAL SPINE CLINICAL INFORMATION: LOW BACK PAIN COMPARISON: None available. TECHNIQUE: Three views of the lumbosacral spine. FINDINGS: There is a mild levoconvex scoliosis, apex at L3. There is a normal lordosis. Trace degenerative retrolisthesis of L1 on L2, L2 on L3, and L3 on L4. Sagittal alignment otherwise normal. Severe disc degeneration present with sclerosis of the endplates and disc osteophytic spurring at L2-3 and L3-4. There is moderate degeneration at L1-2. There is relative sparing of L4-5 and L5-S1. Moderate multilevel hypertrophic degenerative facet changes right greater than left spanning L3-S1. Sacrum is intact. There are right greater than left degenerative SI joint changes. Soft tissues demonstrate very early vascular calcifications but are otherwise normal. XR/XR lumbar spine 2-3V IMPRESSION: 1. No acute bony abnormalities. 2. Mild levoconvex scoliosis, moderate to severe multilevel spondylosis most significant at L2-3 and L3-4. Electronically signed by: Scott Perez MD 01/26/2025 11:31 AM EDT
--- OUTSIDE RECORDS SUMMARY | 2025-01-24 11:48 | XMS_ITS | Patient Health Record ---
Author Organization [facility] Address [address] [place] [address] Care Team Providers Care Otologist Name Role Phone Jam Goldberg MD Primary Care Provider UnavailLanden Short Unavailable [phone] Allergies No Known Allergies Reason For Referral [...] Insured Coverage Start Date Coverage End Date [facility] 65 Medicare [address] [place] [address] [id number] Romie Joshi Self - patient is the insured Medical (General) History Medical History History ICD Code Anxiety High blood pressure Mumps Measles Chicken pox Cataracts Surgical History Surgery Date(Month/Year) detached retina 09/2004
== END 2025-01-24 10:20 | disposition home or self-care (01) ==
LOC: HO.HMGCX 10:19
PROVIDERS: PCP Internal Medicine; Visit Provider Internal Medicine
DX: M54.6 Pain in thoracic spine (principal); M54.50 Low back pain, unspecified; M47.817 Spondylosis without myelopathy or radiculopathy, lumbosacral region; M47.814 Spondylosis without myelopathy or radiculopathy, thoracic region
CPT/HCPCS: 72070; 72100

== ENCOUNTER → 2025-01-24 10:24 | Outpatient (BNV) | payer MEDICARE, SELFPAY | PROVIDERS: PCP Internal Medicine; Visit Provider Radiology Diagnostic Radiology | DX: M54.50 Low back pain, unspecified (principal); M54.6 Pain in thoracic spine | CPT/HCPCS: 72070; 72100 ==

== ENCOUNTER 2025-04-17 10:03 | Outpatient (AMB) | payer MEDICARE, SELFPAY ==
--- NOTE | 2025-04-17 10:00 | A.OFFPC_ITS ---
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 Accompanied by: Self / Same As Patient Allergies No Known Allergies (No Known Allergies*) Allergy (Verified 04/17/25 10:22) Medication List - Last Reconciled 04/17/25 by Malena Fatima PA-C atorvastatin 40 mg PO BEDTIME baclofen 10 mg PO TID PRN carvedilol (Coreg) 25 mg PO BID 90 days hydrochlorothiazide 25 mg PO DAILY lorazepam 0.5 mg PO TID PRN nifedipine ER 60 mg PO BID omeprazole 20 mg PO DAILY tadalafil 20 mg PO DAILY 30 days valsartan 160 mg PO BID Tobacco use date assessed: 04/17/25 Fall risk assessment: No Falls in past year Last assessed Fall Risk: 04/17/25 Dental Screening Dental Screen Date: 04/17/25 Did you have a dental visit in the last 12 months?: Yes Did you have a dental problem in the last 6 months where you did not have access to dental care?: No Was dental information given to patient?: Patient has dentist HPI establish care HPI Details The patient is a 69-year-old male presenting for a new patient appointment and management of chronic conditions. The patient reports being diagnosed with a heart murmur and hypertension last year. A transesophageal echocardiogram (JOSSY) was performed to evaluate the heart valve, revealing a moderate to severe leaky valve. The patient is currently under the care of Dr. Matthew Guevara, a accounting reconciliation clerk at [facility], and is awaiting further management decisions. The patient experiences tingling in the hands and left leg, primarily at night, which has persisted for approximately six months. There is no history of diabetes, and the patient has not had an A1c test recently. The patient reports mild swelling in the ankles, which is suspected to be related to cardiac issues. The patient denies any chest pain or dyspnea. The patient has a history of back pain for which he is taking baclofen. He is also starting physical therapy at the [facility] and has been prescribed a short course of prednisone. The patient experiences anxiety and is prescribed lorazepam, which he takes variably between one and two times a day. There is a plan to potentially reduce the dosage in consultation with Dr. Card. Preventative care includes a scheduled colonoscopy with Dr. Solomon on June 19. Social History - Family Status: Healthcare proxy is the patient's daughter. [facility] Medical History (Updated 04/17/25 @ 11:07 by Malena Fatima PA-C) Hypertension Encounter for preventive care Back pain Extremity edema Paresthesias Establishing care with new doctor, encounter for Elevated PSA BPH (benign prostatic hyperplasia) Hypogonadism in male Elevated PSA Anxiety Retention of urine Elevated blood pressure reading in office with diagnosis of hypertension Surgical History H/O colonoscopy (~01/10/15) History of transurethral resection of prostate Family History Mother Breast cancer Father Heart attack Social History Housing: House Alcohol intake: current Alcohol intake frequency: does not drink Patient Tobacco Use Status: Never used Tobacco service: No Current occupational status: retired Cognitive needs: No Hearing needs: No Vision needs: Yes (reading glasses) Questionnaire PHQ-9 Over the last 2 weeks, how often have you been bothered by any of the following problems? 1. Little interest or pleasure in doing things: not at all 2. Feeling down, depressed, or hopeless: not at all 3. Trouble falling or staying asleep, or sleeping too much: not at all 4. Feeling tired or having little energy: not at all 5. Poor appetite or overeating: not at all 6. Feeling bad about yourself - or that you are a failure or have let yourself or your family down: not at all 7. Trouble concentrating on things, such as reading the newspaper or watching television: not at all 8. Moving or speaking so slowly that other people could have noticed. Or the opposite - being so fidgety or restless that you have been moving around a lot more than usual: not at all 9. Thoughts that you would be better off or of hurting yourself in some way: not at all Total score: 0 Depression Screening Interpretation: Negative Depression Screening Done: Yes 00454 - PHQ-9 Billing: Yes Source: Developed by Drs. Patric Juárez, Veronica Luna, Jose Lozano and colleagues, with an educational herson from [employer]. Thrive Questionnaire Date Thrive assessed: 04/17/25 I am a: Patient What is your living situation today?: I have a steady place to live Within the past 12 months, did the food you bought not last and you didn't have the money to get more?: Never true Within the past 12 months, did you worry whether your food would run out before you got money to buy more?: Never true Do you have trouble paying for medicines?: No Do you have trouble getting transportation to medical appointments?: No Do you have trouble paying your heating and electricity bill?: No Do you have trouble taking care of your child, family member or friend?: No Do you have trouble with day-to-day activities such as bathing, preparing meals, shopping, managing finances, etc.?: No Are you currently unemployed and looking for a job?: No Are you interested in more education?: No Please select the resources that you would like help with: None Currently or been in a relationship where the following occur: No concerns reported THRIVE Score: 0 AUDIT C Alcohol Use Questionnaire (AUDIT-C) 1. How often do you have a drink containing alcohol?: Never 3. How often do you have six or more drinks on one occasion?: Never Total Score: 0 Score Reviewed/Action Taken: No KAILEY-7 AMB Questionnaire KAILEY-7 Date KAILEY - 7 assessed: 04/17/25 Feeling nervous, anxious, or on edge: 0 = Not at all Not being able to stop or control worryin = Not at all Worrying too much about different things: 0 = Not at all Trouble relaxin = Not at all Being so restless that it is hard to sit still: 0 = Not at all Becoming easily annoyed or irritable: 0 = Not at all Feeling afraid as if something awful might happen: 0 = Not at all Total KAILEY-7 score (0-4 normal; 5-9 mild; 10-14 moderate; 15-21 severe): 0 Source: Developed by Veronica MaganaW. Jeremy, Jose Lozano and colleagues, with an educational herson from [employer]. KAILEY-7 Assessment Billing KAILEY-7 Assessment Tool: KAILEY-7 Assessment 94601 Review of Systems Const Details: - Cardiovascular: Reports heart murmur. Denies chest pain or dyspnea. - Neurological: Reports tingling in hands and left leg for six months. Denies slurred speech or weakness. - Musculoskeletal: Reports back pain. - Psychiatric: Reports anxiety. - Gastrointestinal: Denies black or bloody stools, unintentional weight loss, or abdominal pain. Physical exam (Primary Care) Vital Signs: Last Vital Signs Temp 99.1 F 04/17/25 10:08 Pulse 68 04/17/25 10:08 Resp 16 04/17/25 10:08 BP 140/48 H 04/17/25 10:08 Pulse Ox 99 04/17/25 10:08 Oxygen Delivery Method Room Air 04/17/25 10:08 Care Plan Goal for BP management: <140/90 at Goal BMI result Body Mass Index 27.6 BMI Assessment/Plan discussion: High BMI High, discussed plan: lifestyle, weight reduction, dietary, physical activity and alcohol moderation Tobacco/Smoking Status: Tobacco use Status Tobacco use date assessed 04/17/25 04/17/25 10:05 Patient Tobacco Use Status Never used Tobacco 04/17/25 10:16 PHQ-9: PHQ-9 Score PHQ-9: Total score 0 04/17/25 10:05 Depression Screening Interpretation: Negative Thrive Assessment: Date of Thrive Assessment Date Thrive assessed 04/17/25 04/17/25 10:05 Currently or been in a relationship where the following occur: No concerns reported Const Other: Appearance: Alert. Oriented X3. No acute distress. Head: Normal external exam. Normocephalic. Atraumatic. Eyes: Pupils are equal, round, and reactive to light. Extraocular movements intact. Conjunctiva and sclera normal. Eyelids normal. Ears: External auditory canal normal. Tympanic membranes normal. Throat: Pharynx normal. Uvula midline. Moist mucous membranes. Neck: Normal inspection. Neck supple. Full range of motion. Cardiovascular: Heart murmur noted. Normal heart rate and rhythm. Heart sound abnormal due to murmur. Pulses normal throughout. Respiratory: No respiratory distress. Painless inspiration. Breath sounds normal. No wheezes/rales/rhonchi noted. Chest nontender. No accessory muscle usage noted or decreased air movement noted. Abdomen: Soft and nontender. No distention noted. No organomegaly noted. Back: Full range of motion noted. Skin: Skin warm and dry. Normal skin color. Normal skin turgor. No rashes/lesions/lacerations noted. Occasional lower extremity edema noted. Extremities: Occasional lower extremity edema noted. Extremities exhibit normal range of motion. Extremities nontender. Neuro: Oriented X 3. No motor deficit. No sensory deficit. Reflexes normal. Reports tingling in hands and left leg. Normal steady gait. Results Reviewed Results Reviewed: - Labs: Triglycerides 79 mg/dL, Total cholesterol 164 mg/dL, LDL 105 mg/dL, HDL 44 mg/dL. - Tests: Transesophageal echocardiogram (JOSSY) indicating moderate to severe leaky valve. Coding Level of Care Code New Pt Level 5 (01494) Complex EM visit Add On G2211 Diagnoses Establishing care with new doctor, encounter for Z76.89 Paresthesias R20.2 Extremity edema R60.0 Back pain M54.9 Anxiety F41.9 Encounter for preventive care Z00.00 Hypertension I10 Additional Codes PHQ-9 - 39460 - PHQ-9 Billing: Yes ([id number]) KAILEY-7 Assessment Billing - KAILEY-7 Assessment Tool: KAILEY-7 Assessment 93106 ([id number]) Assessment & Plan Assessment & Plan (1) Establishing care with new doctor, encounter for: Code(s): Z76.89 - Persons encountering health services in other specified circumstances Category: Medical (2) Paresthesias: Code(s): R20.2 - Paresthesia of skin Category: Medical Plan: The patient is undergoing blood work to rule out electrolyte abnormalities and is starting physical therapy to address potential nerve issues. (3) Extremity edema: Code(s): R60.0 - Localized edema Category: Medical Plan: The swelling is suspected to be related to cardiac issues, and the patient is advised to monitor symptoms. (4) Back pain: Code(s): M54.9 - Dorsalgia, unspecified Category: Medical Plan: The patient is taking baclofen and starting physical therapy at the [facility]. (5) Anxiety: Code(s): F41.9 - Anxiety disorder, unspecified Category: Medical Plan: The patient is prescribed lorazepam, with a plan to potentially reduce the dosage in consultation with Dr. Crockett (6) Encounter for preventive care: Code(s): Z00.00 - Encounter for general adult medical examination without abnormal findings Category: Medical Plan: The patient has a colonoscopy scheduled with Dr. Solomon on June 19. (7) Hypertension: Code(s): I10 - Essential (primary) hypertension Category: Medical Plan: The patient is on multiple antihypertensive medications and is being monitored by a accounting reconciliation clerk. Plan Plan Patient was informed and verbally consented to the use of an ambient scribe for clinic note documentation during this visit. 1. Heart Murmur The patient is under the care of a accounting reconciliation clerk and awaiting further management decisions based on the JOSSY results indicating a moderate to severe leaky valve. 2. Hypertension The patient is on multiple antihypertensive medications and is being monitored by a accounting reconciliation clerk. 3. Tingling In Hands And Left Leg The patient is undergoing blood work to rule out electrolyte abnormalities and is starting physical therapy to address potential nerve issues. 4. Swollen Ankles The swelling is suspected to be related to cardiac issues, and the patient is advised to monitor symptoms. 5. Back Pain The patient is taking baclofen and starting physical therapy at the [facility]. 6. Anxiety The patient is prescribed lorazepam, with a plan to potentially reduce the dosage in consultation with Dr. Crockett 7. Preventative Care: Scheduled Colonoscopy The patient has a colonoscopy scheduled with Dr. Solomon on June 19. I discussed with the patient the findings of the JOSSY, which indicated a moderate to severe leaky valve, and the need for follow-up with the accounting reconciliation clerk for further management. We reviewed the patient's current medications, including antihypertensives and lorazepam, and discussed the potential for adjusting the l orazepam dosage. I also ordered blood work to investigate the cause of the tingling in the hands and left leg and recommended starting physical therapy. We scheduled a follow-up appointment for a physical examination in April and discussed the upcoming colonoscopy in May. Orders: Orders Complete Blood Count Auto Diff Today Z00.00 - Encounter for general adult medical examination without abnormal findings Comprehensive Met. Panel Today Z00.00 - Encounter for general adult medical examination without abnormal findings Magnesium Today Z00.00 - Encounter for general adult medical examination without abnormal findings Liver Panel Today Z00.00 - Encounter for general adult medical examination without abnormal findings Vitamin B12 and Folate Today Z00. - Encounter for general adult medical examination without abnormal findings TSH reflex Free T4 Today Z. - Encounter for general adult medical examination without abnormal findings Hemoglobin A1c Today Z. - Encounter for general adult medical examination without abnormal findings C Reactive Protein Today Z. - Encounter for general adult medical examination without abnormal findings Vitamin D 25-OH Total Today Z00. - Encounter for general adult medical examination without abnormal findings Patient Instructions: - Follow up with accounting reconciliation clerk for heart murmur management. - Monitor blood pressure regularly and adhere to prescribed medications. - Attend physical therapy sessions for back pain and tingling symptoms. - Schedule and attend the colonoscopy appointment in May. - Complete blood work as ordered before the next appointment. - Discuss any changes in symptoms or medication side effects with healthcare provider.
[2025-04-17 10:08] VITALS: BP 140/48; PULSE 68; RESP 16; TEMP 37.3; O2SAT 99; BMI 27.6
--- OUTSIDE RECORDS SUMMARY | 2025-04-17 10:50 | XMS_ITS | Patient Health Record ---
Author Organization [facility] Address [address] [place] [id number] Care Team Providers Care Hose Tester Name Role Phone Ashlyn (RETIRED) Jam MENDEZ Primary Care Provider Unavailable Patric Solomon Unavailable [phone] Allergies No Known Allergies Reason For Referral No Information Medications Medication SIG (Take, Route, Frequency, Duration) Notes Start Date End Date Status LORazepam 0.5 MG 1 tablet as needed Orally Twice a day Active Atorvastatin Calcium Active Valsartan 160 MG TAKE ONE TABLET BY MOUTH TWICE A DAY Oral for 90 Days Active hydroCHLOROthiazide Active Carvedilol Active NIFEdipine ER Osmotic Releas e 60 MG TAKE 1 TABLET BY MOUTH TWO TIMES A DAY Oral for 90 Days Active Problems Problem Type SNOMED Code ICD Code Onset Dates Problem Status W/U Status Risk Notes Problem Heme + stool (792.1) Active confirmed Vital Signs Blood pressure diastolic 77 mm Hg 03/28/2025 Height 68 in 03/28/2025 Blood pressure systolic 111 mm Hg 03/28/2025 Weight 179 lbs 03/28/2025 BMI 27.21 kg/m2 03/28/2025 Procedures Procedure Date Ordered Date Performed Result Body Sit e COLONOSCOPY 03/28/2025 N/A Encounters Encounter Location Date Provider Diagnosis [facility] [address] [place] [id number] 03/28/2025 Patric Solomon Colon cancer screeni ng Z12.11 ; High risk medications (not anticoagulants) long-term use Z79.899 and Preprocedural examination Z01.818 Assessments Encounter Date Diagnosis (ICD Code) Assessment Notes Treatment Notes Treatment Clinical Notes Section Notes 03/28/2025 Colon cancer screening (ICD-10 - Z12.11) Need clearance from Dr. Guevara--[facility] e Cardiology---n eed info re: murmur 03/28/2025 High risk medications (not anticoagulants) long-term use (ICD-10 - Z79.899) 03/28/2025 Preprocedural examination (ICD-10 - Z01.818) Plan Of Treatment Pending Test Test Name Order Date COLONOSCOPY 03/28/2025 Future Test Test Name Order Date COLONOSCOPY 11/09/2014 Next Appt Details Provider Name:Patric Solomon , 06/19/2025 11:50:00 AM, [address] [place] [address] , [place], [place], [id number], Insurance Providers Payer Name Payer Address Payer Phone Subscriber Number Group Number Insured Name Patient Relationship to Insured Coverage Start Date Coverage End Date [facility] [address] [id number] [phone] [id number] DIMPLE WELLS Self - patient is the insured Medical (General) History Medical History History ICD Code BPH HTN Depression Anxiety Denies OK,DM,CVA,Lung disease,renal dise ase Negative colonoscopies in and 05/2007 except hyperplastic polyps, diverticulosis, and internal hemorrhoids Negative colonoscopy in 2014 Heart murmur-sees Dr. Guevara at [facility] Surgical History Surgery Date(Month/Year) Prostate 2017 Cataracts 2019 Hernia bilateral 2020 Detached retina both eyes
--- OUTSIDE RECORDS SUMMARY | 2025-04-17 10:50 | XMS_ITS | Patient Health Record ---
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 Name Role Phone Jam Goldberg MD Primary Care Provider UnavailLanden Short Unavailable [phone] Allergies No Known Allergies Reason For Referral [...] 160 MG 1 tablet Orally Once a day; Duration: 30 day(s) 05/16/2020 Active NIFEdipine 30 MG [...] Insured Coverage Start Date Coverage End Date [employer] 65 Medicare Preferred [address] [place] [address] [id number] Romie Joshi Self - patient is the insured Medical (General) History Medical History History ICD Code Anxiety High blood pressure Mumps Measles Chicken pox Cataracts Surgical History Surgery Date(Month/Year) detached retina 09/2004
== END 2025-04-17 10:43 | disposition home or self-care (01) ==
LOC: HO.HMCSH 10:03
PROVIDERS: PCP Internal Medicine; Visit Provider Physician Assistant Medical
DX: R20.2 Paresthesia of skin (principal); R60.0 Localized edema; M54.9 Dorsalgia, unspecified; F41.9 Anxiety disorder, unspecified; I10 Essential (primary) hypertension

== ENCOUNTER → 2025-04-17 10:03 | Outpatient (BNVA) | payer MEDICARE, SELFPAY | PROVIDERS: PCP Internal Medicine; Visit Provider Physician Assistant Medical | DX: Z00.00 Encounter for general adult medical examination without abnormal findings (principal); I10 Essential (primary) hypertension; R01.1 Cardiac murmur, unspecified; R20.2 Paresthesia of skin; F41.9 Anxiety disorder, unspecified; R60.0 Localized edema; M54.9 Dorsalgia, unspecified; M25.472 Effusion, left ankle; M25.471 Effusion, right ankle; Z76.89 Persons encountering health services in other specified circumstances; Z79.899 Other long term (current) drug therapy | CPT/HCPCS: 96127; 99202 ==

== ENCOUNTER 2025-05-15 07:21 | Outpatient (REF) | payer MEDICARE, SELFPAY ==
--- OUTSIDE RECORDS SUMMARY | 2025-05-11 23:59 | XMS_ITS | Continuity of Care Document ---
Author Organization [facility] Address [address] [address] [facility] Name Relationship Address Phone CHARITO WELLS mother Unknown Unavailable YESSY RICHARDSON domestic partner Unknown Unavailable EDWARD WELLS child Unknown Unavailab le Care Team Providers Care Wall Cleaner Name Role Phone Ching MENDEZ, Logan Quintero Primary Care Physician Encounter [facility] [id number] Date(s): 04/11/25 - 05/11/[address] [address] Encounter Type: Triage Allergies, Adverse Reactions, Alerts No Known Medication Allergies Immunizations Given and Recorded Vaccine Date Status Refusal Reason SARS-CoV-2 (COVID-19) mRNA BNT-162b2 vac 12/26/20 Given SARS-CoV-2 (COVID-19) mRNA BNT-162b2 vac 12/05/20 Given Medications atorvastatin 40 mg oral tablet 0 Refills, Maintenance, 02/02/25 8:38:00 AM EDT, Partial fill upon patient request if the prescription is for a schedule II opioid drug. Start Date: 02/02/25 Status: Ordered Repeat number: 1 carvedilol 25 mg oral tablet 25 mg, 1, tablet, By Mouth, 2 times a day, Refills 0, Maintenance, 02/02/25 8:39:00 AM EDT, Partial fill upon patient request if the prescription is for a schedule II opioid drug. Start Date: 02/02/25 Status: Ordered Repeat number: 1 hydrochlorothiazide 25 mg oral tablet Refills 0, Maintenance, 02/02/25 8:39:00 AM EDT, Partial fill upon patient request if the prescription is for a schedule II opioid drug. Start Date: 02/02/25 Status: Ordered Repeat number: 1 LORazepam 0.5 mg oral tablet 0 Refills, Maintenance, 02/02/25 8:39:00 AM EDT, Partial fill upon patient request if the prescription is for a schedule II opioid drug. Start Date: 02/02/25 Status: Ordered Repeat number: 1 NIFEdipine (Eqv-Procardia XL) 60 mg oral tablet, extended release 1 tablet = 60 mg, By Mouth, 2 times a day, 0 Refills, Maintenance, 02/02/25 8:40:00 AM EDT, Partial fill upon patient request if the prescription is for a schedule II opioid drug. Start Date: 02/02/25 Status: Ordered Repeat number: 1 omeprazole 20 mg oral enteric coated capsule 1 capsule = 20 mg, By Mouth, Daily, 0 Refills, Maintenance, 02/02/25 8:40:00 AM EDT, Partial fill upon patient request if the prescription is for a schedule II opioid drug. Start Date: 02/02/25 Status: Ordered Repeat number: 1 Tadalafil (Eqv-Cialis) 20 mg oral tablet 0 Refills, Maintenance, 02/02/25 8:39:00 AM EDT, Partial fill upon patient request if the prescription is for a schedule II opioid drug. Start Date: 02/02/25 Status: Ordered Repeat number: 1 valsartan 160 mg oral tablet 2 times a day, 320 mg total, Refills 0, Maintenance, 02/02/25 8:41:00 AM EDT, Partial fill upon patient request if the prescription is for a schedule II opioid drug. Start Date: 02/02/25 Status: Ordered Repeat number: 1 Patient Care team information Care Team Personnel Name: Logan Flower MD Position: Reference Physician Member Role: PCP Address: [address] [place] [address] [address] [place], [place] [address] Telecom: Care Team Related Persons Name: YESSY RICHARDSON Name: CHARITO WELLS Name: EDWARD WELLS Insurance Providers Guarantor name: DIMPLE WELLS Health Plan Information #: 1 Payer: [employer] PPO Payer Identifier: NA Member Number: [id number] Group Number: [id number] Subscriber Identifier: [id number] Relationship to Subscriber: self Coverage Type: Medicare PPO Coverage Verification Date: NA Telecom: NA Address:
--- OUTSIDE RECORDS SUMMARY | 2025-05-15 07:24 | XMS_ITS | Patient Health Record ---
Author Organization [facility] Address [address] [place] [address] Care Team Providers Care Instructor Ballroom Dancing Name Role Phone Jam Goldberg MD Primary Care Provider UnavailLanden Short Unavailable [phone] Allergies No Known Allergies Reason For Referral [...] End Date [employer] 65 Medicare Preferred [address] [place] [address] [id number] Romie Joshi Self - patient is the insured Medical (General) History Medical History History ICD Code Anxiety High blood pressure Mumps Measles Chicken pox Cataracts Surgical History Surgery Date(Month/Year) detached retina 09/2004
--- OUTSIDE RECORDS SUMMARY | 2025-05-15 07:24 | XMS_ITS | Patient Health Record ---
Author Organization [facility] Address [address] [place] [id number] Care Team Providers Care Trading Analyst Name Role Phone Ashlyn (RETIRED) Jam MENDEZ Primary Care Provider Unavailable Patric Solomon Unavailable [phone] Allergies No Known Allergies Reason For Referral [...] N/A Encounters Encounter Location Date Provider Diagnosis [facility] [address] [place] [phone] 03/28/2025 Patric Solomon Colon cancer screeni ng Z12.11 ; Preprocedural examination Z01.818 and High risk medications (not anticoagulants) long-term use Z79.899 Assessments Encounter Date Diagnosis (ICD Code) Assessment Notes Treatment Notes Treatment Clinical Notes Section Notes 03/28/2025 Colon cancer screening (ICD-10 - Z12.11) Need clearance from Dr. Guevara--[facility]--- need info re: murmur Overall, Dimple appears well. I did recommend a colonoscopy for further screening purposes given his age, good clinical appearance, and his last colonoscopy being 10 years ago. We did review the rationale for this in regard to colon cancer prevention. Full consent has been obtained for this, including risks of bleeding and perforation. The procedure will be done with monitored anesthesia care. He was given the below instructions regarding adjustment of his medication for the procedure. We will also obtain a letter of clearance from his emergency preparedness manager in regard to his heart murmur. Dimple was comfortable with this plan. Thank you again for allowing me to participate in Dimple's care. I shall continue to keep you advised of his progress. 03/28/2025 Preprocedural examination (ICD-10 - Z01.818) Overall, Dimple appears well. I did recommend a colonoscopy for further screening purposes given his age, good clinical appearance, and his last colonoscopy being 10 years ago. We did review the rationale for this in regard to colon cancer prevention. Full consent has been obtained for this, including risks of bleeding and perforation. The procedure will be done with monitored anesthesia care. He was given the below instructions regarding adjustment of his medication for the procedure. We will also obtain a letter of clearance from his emergency preparedness manager in regard to his heart murmur. Dimple was comfortable with this plan. Thank you again for allowing me to participate in Dimple's care. I shall continue to keep you advised of his progress. 03/28/2025 High risk medications (not anticoagulants) long-term use (ICD-10 - Z79.899) Overall, Dimple appears well. I did recommend a colonoscopy for further screening purposes given his age, good clinical appearance, and his last colonoscopy being 10 years ago. We did review the rationale for this in regard to colon cancer prevention. Full consent has been obtained for this, including risks of bleeding and perforation. The procedure will be done with monitored anesthesia care. He was given the below instructions regarding adjustment of his medication for the procedure. We will also obtain a letter of clearance from his emergency preparedness manager in regard to his heart murmur. Dimple was comfortable with this plan. Thank you again for allowing me to participate in Dimple's care. I shall continue to keep you advised of his progress. Plan Of Treatment Pending Test Test Name Order Date COLONOSCOPY 03/28/2025 Future Test Test Name Order Date COLONOSCOPY 11/09/2014 Next Appt Details Provider Name:Patric Solomon , 06/19/2025 11:50:00 AM, [address] [place] [address] , [place], [place], [phone], Insurance Providers Payer Name Payer Address Payer Phone Subscriber Number Group Number Insured Name Patient Relationship to Insured Coverage Start Date Coverage End Date [facility] [address] [place] [address] [id number] DIMPLE WELLS Self - patient is the insured Medical (General) History Medical History History ICD Code BPH HTN Depression Anxiety Denies CO,DM,CVA,Lung disease,renal dise ase Negative colonoscopies in and 05/2007 except hyperplastic polyps, diverticulosis, and internal hemorrhoids Negative colonoscopy in 2014 Heart murmur-sees Dr. Guevara at [facility] Surgical History Surgery Date(Month/Year) Prostate 2017 Cataracts 2020 Hernia bilateral 2020 Detached retina both eyes
[2025-05-15 07:43] LABS: MANUAL DIFF FLAG NO
[2025-05-15 08:02] LABS: Hematocrit 42.8 % (42.0-52.0); Hemoglobin 15.0 g/dl (14.0-18.0); Imm Gran Abs Auto 0.02 X10*3/uL (0.00-0.03); Imm Gran Pct Auto 0.3 % (0.0-0.4); Lymphocytes Absolute Auto 1.8 X10*3/uL (1.2-4.9); Mean Corpuscular HGB Conc 35.0 g/dl (31.0-36.0); Mean Corpuscular Hemoglobin 31.3 pg (27.0-33.0); Mean Corpuscular Volume 89.4 fL (80.0-98.0); NRBC Abs Auto 0.000 X10*3/uL (0.0-0.012); NRBC Pct Auto 0.0 /100WBC (0.0-0.2); Platelet Count 213 X10*3/uL (160-400); Red Blood Count 4.79 X10*6/uL (4.60-5.80); White Blood Count 7.6 X10*3/uL (4.8-10.8)
[2025-05-15 08:10] LABS: Hemoglobin A1C 129.7563 umol/L; Total Hemoglobin (HGBA1C) 3915.2358 umol/L
[2025-05-15 09:07] LABS: Alanine Aminotransferase 13 U/L (0-40); Albumin Level 4.3 g/dL (3.5-5.0); Alkaline Phosphatase 65 U/L (39-117); Anion Gap 13 (12-20); Aspartate Amino Transferase 21 U/L (5-37); Blood Urea Nitrogen 18 mg/dL (9-16); Calcium 8.8 mg/dL (8.4-10.2); Carbon Dioxide 26 mmol/L (22-29); Chloride 104 mmol/L (96-108); Cholesterol 100 mg/dL (<200); Estimated Glomerular Filt Rate 53; HDL Cholesterol 43 mg/dL (>40); Magnesium 2.2 mg/dL (1.6-2.6); Potassium 3.8 mmol/L (3.3-5.1); Sodium 139 mmol/L (135-145); Total Protein 6.7 g/dL (6.5-8.0); Triglycerides 50 mg/dL (<150)
[2025-05-15 09:27] LABS: Folate 7.4 ng/mL (> or = 4.0); Vitamin B12 320 pg/mL (200-900)
== END 2025-05-15 07:22 | disposition home or self-care (01) ==
LOC: HO.LAB 07:21
PROVIDERS: PCP Internal Medicine; Visit Provider Physician Assistant Medical
DX: Z00.00 Encounter for general adult medical examination without abnormal findings (principal); I25.10 Atherosclerotic heart disease of native coronary artery without angina pectoris
CPT/HCPCS: 36415; 80053; 80061; 82248; 82306; 82607; 82746; 83036; 83735; 84443; 85025; 86140

== ENCOUNTER 2025-05-18 11:11 | Outpatient (AMB) | payer MEDICARE, SELFPAY ==
[2025-05-18 11:14] VITALS: BP 142/64; PULSE 74; RESP 16; TEMP 36.8; O2SAT 97; BMI 27.2
--- NOTE | 2025-05-18 11:14 | MHC.PC.OV ---
Vital Signs 05/18/25 11:14 Height 5 ft 7.32 in Weight 175 lb 4 oz BMI 27.2 BP 142/64 H Blood Pressure Location Rt femoral Position Sitting Respiration 16 Pulse 74 Pulse Source Pulse Oximeter Temp 98.2 F Temp Source Temporal Artery Scan Pulse Oximetry (%) 97 Oxygen Delivery Method Room Air Intake Visit Reasons: Physical Roll Builder Required: No Accompanied by: Self / Same As Patient Allergies No Known Allergies (No Known Allergies*) Allergy (Verified 05/18/25 12:58) Medication List - Last Reconciled 05/18/25 by Malena Fatima PA-C atorvastatin 40 mg PO BEDTIME baclofen 10 mg PO TID PRN carvedilol 25 mg PO BID cholecalciferol (vitamin D3) 50 mcg PO DAILY gabapentin 100 mg PO BID 90 days hydrochlorothiazide 25 mg PO DAILY lorazepam 0.5 mg PO TID PRN nifedipine ER 60 mg PO BID omeprazole 20 mg PO DAILY tadalafil 20 mg PO DAILY 30 days valsartan 160 mg PO BID Tobacco use date assessed: 04/17/25 Fall risk assessment: No Falls in past year Last assessed Fall Risk: 04/17/25 Dental Screening Dental Screen Date: 04/17/25 Did you have a dental visit in the last 12 months?: Yes Did you have a dental problem in the last 6 months where you did not have access to dental care?: No Was dental information given to patient?: Patient has dentist HPI Physical HPI Details The patient is a 69-year-old male presenting for an annual physical examination. The patient reports chronic back pain for which he has been attending physical therapy sessions twice a week at the [facility]. He has completed 10 out of 12 scheduled appointments and notes improvement in his symptoms. He also experiences peripheral neuropathy, characterized by pins and needles sensation in his hands, predominantly at night. He is not currently on gabapentin but is considering starting it to manage these symptoms. The patient was found to be slightly dehydrated during recent blood work, with a GFR of 53, likely due to fasting. He does not have a history of kidney disease, and his sodium and potassium levels were normal. His vitamin D level was noted to be low at 22, and he has been advised to take vitamin D supplements. The patient has a history of hypertension, managed with multiple medications including hydrochlorothiazide, carvedilol, and valsartan. He monitors his blood pressure regularly, which is generally well-controlled, though occasionally elevated due to missed doses. He has hyperlipidemia, for which he is on atorvastatin 40 mg, resulting in excellent cholesterol levels. The patient underwent prostate ablation surgery in 2016 for an enlarged prostate and reports no current urinary symptoms. Preventative care includes a scheduled colonoscopy on June 03, with previous screenings being negative. Social History - Exercise: Attends physical therapy sessions twice a week for back pain management. [facility] Medical History (Updated 05/18/25 @ 13:03 by Malena Fatima PA-C) Hyperlipidemia Vitamin D deficiency Dehydration Peripheral neuropathy Chronic back pain Hypertension Encounter for preventive care Back pain Extremity edema Paresthesias Establishing care with new doctor, encounter for Elevated PSA BPH (benign prostatic hyperplasia) Hypogonadism in male Elevated PSA Anxiety Retention of urine Elevated blood pressure reading in office with diagnosis of hypertension Surgical History H/O colonoscopy (~01/10/15) History of transurethral resection of prostate Family History Mother Breast cancer Father Heart attack Social History Housing: House Alcohol intake: current Alcohol intake frequency: does not drink Patient Tobacco Use Status: Never used Tobacco service: No Current occupational status: retired Cognitive needs: No Hearing needs: No Vision needs: Yes (reading glasses) Questionnaire PHQ-9 Over the last 2 weeks, how often have you been bothered by any of the following problems? 1. Little interest or pleasure in doing things: not at all 2. Feeling down, depressed, or hopeless: not at all 3. Trouble falling or staying asleep, or sleeping too much: not at all 4. Feeling tired or having little energy: not at all 5. Poor appetite or overeating: not at all 6. Feeling bad about yourself - or that you are a failure or have let yourself or your family down: not at all 7. Trouble concentrating on things, such as reading the newspaper or watching television: not at all 8. Moving or speaking so slowly that other people could have noticed. Or the opposite - being so fidgety or restless that you have been moving around a lot more than usual: not at all 9. Thoughts that you would be better off or of hurting yourself in some way: not at all Total score: 0 Depression Screening Interpretation: Negative Depression Screening Done: Yes 99263 - PHQ-9 Billing: Yes Source: Developed by Drs. Patric Juárez, Veronica Luna, Jose Lozano and colleagues, with an educational herson from [employer]. Thrive Questionnaire Date Thrive assessed: 04/17/25 I am a: Patient What is your living situation today?: I have a steady place to live Within the past 12 months, did the food you bought not last and you didn't have the money to get more?: Never true Within the past 12 months, did you worry whether your food would run out before you got money to buy more?: Never true Do you have trouble paying for medicines?: No Do you have trouble getting transportation to medical appointments?: No Do you have trouble paying your heating and electricity bill?: No Do you have trouble taking care of your child, family member or friend?: No Do you have trouble with day-to-day activities such as bathing, preparing meals, shopping, managing finances, etc.?: No Are you currently unemployed and looking for a job?: No Are you interested in more education?: No Please select the resources that you would like help with: None Currently or been in a relationship where the following occur: No concerns reported THRIVE Score: 0 AUDIT C Alcohol Use Questionnaire (AUDIT-C) 1. How often do you have a drink containing alcohol?: Never 3. How often do you have six or more drinks on one occasion?: Never Total Score: 0 Score Reviewed/Action Taken: No KAILEY-7 AMB Questionnaire KAILEY-7 Date KAILEY - 7 assessed: 04/17/25 Feeling nervous, anxious, or on edge: 0 = Not at all Not being able to stop or control worryin = Not at all Worrying too much about different things: 0 = Not at all Trouble relaxin = Not at all Being so restless that it is hard to sit still: 0 = Not at all Becoming easily annoyed or irritable: 0 = Not at all Feeling afraid as if something awful might happen: 0 = Not at all Total KAILEY-7 score (0-4 normal; 5-9 mild; 10-14 moderate; 15-21 severe): 0 Source: Developed by Drs. Patric Juárez, Veronica Luna, Jose Lozano and colleagues, with an educational herson from [employer]. KAILEY-7 Assessment Billing KAILEY-7 Assessment Tool: KAILEY-7 Assessment 55780 Review of Systems Const Details: - Neurological: Reports pins and needles sensation in hands, predominantly at night. - Cardiovascular: Denies chest pain, orthopnea, or syncope. - Respiratory: Denies dyspnea or wheezing. - Gastrointestinal: Denies constipation, black or bloody stools. - Genitourinary: Denies difficulty urinating or hematuria. - Musculoskeletal: Denies leg swelling or calf pain. All systems reviewed & are unremarkable except as noted in HPI and below Physical exam (Primary Care) Vital Signs: Last Vital Signs Temp 98.2 F 05/18/25 11:14 Pulse 74 05/18/25 11:14 Resp 16 05/18/25 11:14 BP 142/64 H 05/18/25 11:14 Pulse Ox 97 05/18/25 11:14 Oxygen Delivery Method Room Air 05/18/25 11:14 Care Plan Goal for BP management: <140/90 at Goal BMI result Body Mass Index 27.2 BMI Assessment/Plan discussion: High BMI High, discussed plan: lifestyle, weight reduction, dietary, physical activity, alcohol moderation and other Tobacco/Smoking Status: Tobacco use Status Tobacco use date assessed 04/17/25 05/18/25 11:17 Patient Tobacco Use Status Never used Tobacco 05/18/25 11:17 PHQ-9: PHQ-9 Score PHQ-9: Total score 0 05/18/25 11:24 Depression Screening Interpretation: Negative Thrive Assessment: Date of Thrive Assessment Date Thrive assessed 04/17/25 05/18/25 11:17 Currently or been in a relationship where the following occur: No concerns reported Const Other: Appearance: Alert. Oriented X3. No acute distress. Head: Normal external exam. Normocephalic. Atraumatic. Eyes: Pupils are equal, round, and reactive to light. Extraocular movements intact. Conjunctiva and sclera normal. Eyelids normal. Ears: External auditory canal normal. Tympanic membranes normal. Throat: Pharynx normal. Uvula midline. Moist mucous membranes. Neck: Normal inspection. Neck supple. Full range of motion. No adenopathy. Thyroid Normal. No meningeal signs. No neck mass noted. Cardiovascular: Normal heart rate and rhythm. Heart sound normal. No murmurs noted. Pulses normal throughout. Respiratory: No respiratory distress. Painless inspiration. Breath sounds normal. No wheezes/rales/rhonchi noted. Chest nontender. No accessory muscle usage noted or decreased air movement noted. Abdomen: Soft and nontender. Bowel sounds normal in all 4 quadrants. No distention noted. No organomegaly noted. No visible injury noted. Back: No costovertebral angle tenderness. Full range of motion noted. Skin: Skin warm and dry. Normal skin color. Normal skin turgor. No rashes/lesions/lacerations noted. Extremities: No lower extremity edema. Extremities exhibit normal range of motion. Extremities nontender. Neuro: Oriented X 3. No motor deficit. No sensory deficit. Reflexes normal. Results Reviewed Results Reviewed: - Labs: CBC normal, sodium and potassium normal, GFR 53, vitamin D 22, cholesterol total 100, LDL 47, B12 320, thyroid normal, A1c 5.2. - Tests: PSA normal. Coding Level of Care Code Est Pt Level 4 (63315) Est Pt Prev Care >65y(25739) Diagnoses Chronic back pain M54.9; G89.29 Peripheral neuropathy G62.9 Dehydration E86.0 Vitamin D deficiency E55.9 Hypertension I10 Hyperlipidemia E78.5 Encounter for preventive care Z00.00 Additional Codes KAILEY-7 Assessment Billing - KAILEY-7 Assessment Tool: KAILEY-7 Assessment 89269 ([id number]) PHQ-9 - 19432 - PHQ-9 Billing: Yes ([id number]) Assessment & Plan Assessment & Plan (1) Chronic back pain: Code(s): M54.9 - Dorsalgia, unspecified; G89.29 - Other chronic pain Category: Medical Plan: The patient is undergoing physical therapy twice a week, which has shown improvement in symptoms. He will continue with the remaining sessions and monitor progress. (2) Peripheral neuropathy: Code(s): G62.9 - Polyneuropathy, unspecified Category: Medical Plan: The patient experiences pins and needles sensation in his hands, primarily at night. Gabapentin 100 mg twice a day is recommended to manage symptoms. (3) Dehydration: Code(s): E86.0 - Dehydration Category: Medical Plan: The patient was advised to increase fluid intake to address mild dehydration noted in recent labs. (4) Vitamin D deficiency: Code(s): E55.9 - Vitamin D deficiency, unspecified Category: Medical Plan: The patient is advised to take vitamin D supplements to address the deficiency. (5) Hypertension: Code(s): I10 - Essential (primary) hypertension Category: Medical Plan: The patient is on multiple antihypertensive medications and monitors his blood pressure regularly. He is advised to ensure medication adherence to maintain control. (6) Hyperlipidemia: Code(s): E78.5 - Hyperlipidemia, unspecified Category: Medical Plan: The patient is on atorvastatin 40 mg, which has effectively managed his cholesterol levels. (7) Encounter for preventive care: Code(s): Z00.00 - Encounter for general adult medical examination without abnormal findings Category: Medical Plan: The patient is scheduled for a colonoscopy on June 03, with previous screenings being negative. Plan Plan Patient was informed and verbally consented to the use of an ambient scribe for clinic note documentation during this visit. 1. Chronic Back Pain The patient is undergoing physical therapy twice a week, which has shown improvement in symptoms. He will continue with the remaining sessions and monitor progress. 2. Peripheral Neuropathy The patient experiences pins and needles sensation in his hands, primarily at night. Gabapentin 100 mg twice a day is recommended to manage symptoms. 3. Dehydration The patient was advised to increase fluid intake to address mild dehydration noted in recent labs. 4. Vitamin D Deficiency The patient is advised to take vitamin D supplements to address the deficiency. 5. Hypertension The patient is on multiple antihypertensive medications and monitors his blood pressure regularly. He is advised to ensure medication adherence to maintain control. 6. Hyperlipidemia The patient is on atorvastatin 40 mg, which has effectively managed his cholesterol levels. 7. Preventative Care: Colonoscopy The patient is scheduled for a colonoscopy on June 03, with previous screenings being negative. I discussed with the patient the management of his chronic back pain through ongoing physical therapy, which has shown improvement. We also talked about starting gabapentin for his peripheral neuropathy symptoms, explaining its potential benefits and side effects. I advised him to increase fluid intake to address mild dehydration and to continue vitamin D supplementation for his deficiency. We reviewed his blood pressure management, emphasizing the importance of medication adherence. The patient is scheduled for a colonoscopy, and we discussed the importance of this preventative measure given his previous negative screenings. Medications: New gabapentin 100 mg PO BID 180 caps 3RF 90 days Patient Instructions: - Continue physical therapy sessions for back pain management. - Start gabapentin 100 mg twice a day for neuropathy symptoms. - Increase fluid intake to prevent dehydration. - Take vitamin D supplements as advised. - Monitor blood pressure regularly and adhere to prescribed medications. - Attend scheduled colonoscopy on June 03.
--- OUTSIDE RECORDS SUMMARY | 2025-05-18 12:53 | XMS_ITS | Patient Health Record ---
Author Organization [facility] Address [address] [place] [address] Care Team Providers Care Machine Assembler For Puller Over Name Role Phone Jam Goldberg MD Primary Care Provider UnavailLanden Short Unavailable [phone] Allergies No Known Allergies Reason For Referral [...] End Date [employer] [address] [place] [address] [id number] Romie Joshi Self - patient is the insured Medical (General) History Medical History History ICD Code Anxiety High blood pressure Mumps Measles Chicken pox Cataracts Surgical History Surgery Date(Month/Year) detached retina 09/2004
--- OUTSIDE RECORDS SUMMARY | 2025-05-18 12:54 | XMS_ITS | Patient Health Record ---
Author Organization [facility] Address [address] [place] [phone] Care Team Providers Care Associate Juvenile Court Judge Name Role Phone Ashlyn (RETIRED) Jam MENDEZ Primary Care Provider Unavailable Patric Solomon Unavailable [phone] Allergies No Known Allergies Reason For Referral [...] N/A Encounters Encounter Location Date Provider Diagnosis [facility] [address] [place] [phone] 03/28/2025 Patric Solomon Colon cancer screeni ng [...] obtain a letter of clearance from his windows server architect in regard to his heart murmur. Dimple [...] obtain a letter of clearance from his windows server architect in regard to his heart murmur. Dimple [...] obtain a letter of clearance from his windows server architect in regard to his heart murmur. Dimple was comfortable with this plan. Thank you again for allowing me to participate in Dimple's care. I shall continue to keep you advised of his progress. Plan Of Treatment Pending Test Test Name Order Date COLONOSCOPY 03/28/2025 Future Test Test Name Order Date COLONOSCOPY 11/09/2014 Next Appt Details Provider Name:Patric Solomon , 06/19/2025 11:50:00 AM, [address] [place] [address] , [place], [place], [phone], Insurance Providers Payer Name Payer Address Payer Phone Subscriber Number Group Number Insured Name Patient Relationship to Insured Coverage Start Date Coverage End Date [facility] [address] [place] [address] [phone] [id number] DIMPLE WELLS Self - patient is the insured Medical (General) History Medical History History ICD Code BPH HTN Depression Anxiety Denies CA,DM,CVA,Lung disease,renal dise ase Negative colonoscopies in and 05/2007 except hyperplastic polyps, diverticulosis, and internal hemorrhoids Negative colonoscopy in 2014 Heart murmur-sees Dr. Guevara at [facility] Surgical History Surgery Date(Month/Year) Prostate 2017 Cataracts 2020 Hernia bilateral 2020 Detached retina both eyes
== END 2025-05-18 11:55 | disposition home or self-care (01) ==
LOC: HO.HMCSH 11:12
PROVIDERS: PCP Internal Medicine; Visit Provider Physician Assistant Medical
DX: Z00.00 Encounter for general adult medical examination without abnormal findings (principal); M54.9 Dorsalgia, unspecified; G89.29 Other chronic pain; G62.9 Polyneuropathy, unspecified; E86.0 Dehydration; E55.9 Vitamin D deficiency, unspecified; I10 Essential (primary) hypertension; E78.5 Hyperlipidemia, unspecified

== ENCOUNTER → 2025-05-18 11:11 | Outpatient (BNVA) | payer MEDICARE, SELFPAY | PROVIDERS: PCP Internal Medicine; Visit Provider Physician Assistant Medical | DX: Z00.00 Encounter for general adult medical examination without abnormal findings (principal); M54.9 Dorsalgia, unspecified; G89.29 Other chronic pain; G62.9 Polyneuropathy, unspecified; E55.9 Vitamin D deficiency, unspecified; E78.5 Hyperlipidemia, unspecified; E86.0 Dehydration; I10 Essential (primary) hypertension | CPT/HCPCS: 96127; 99212; 99397 ==

== ENCOUNTER 2025-08-04 14:21 | Outpatient (AMB) | payer MEDICARE, SELFPAY ==
[2025-08-04 14:28] VITALS: BP 129/67; PULSE 72; RESP 14; TEMP 36.4; O2SAT 99; BMI 26.1
--- NOTE | 2025-08-04 14:28 | A.OFFPC_ITS ---
Vital Signs 08/04/25 14:28 Height 5 ft 7.32 in Weight 168 lb BMI 26.1 BP 129/67 Blood Pressure Location Lt brachial Position Sitting Respiration 14 Pulse 72 Pulse Source Pulse Oximeter Temp 97.6 F Temp Source Temporal Artery Scan Pulse Oximetry (%) 99 Oxygen Delivery Method Room Air Intake Visit Reasons: Post-op Intake Note: Visit Reason: TCM Intake Note: Patient is here for hospital discharge follow up. 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 per policy Accompanied by: Self / Same As Patient Allergies No Known Allergies (No Known Allergies*) Allergy (Verified 08/04/25 14:56) Medication List - Last Reconciled 08/04/25 by Malena Fatima PA-C aspirin 81 mg PO DAILY atorvastatin 40 mg PO BEDTIME carvedilol 25 mg PO BID cholecalciferol (vitamin D3) 50 mcg PO DAILY gabapentin 100 mg PO BID 90 days lorazepam 0.5 mg PO TID PRN nifedipine ER 60 mg PO BID omeprazole 20 mg PO DAILY spironolactone 25 mg PO DAILY tadalafil 20 mg PO DAILY 30 days tamsulosin 0.4 mg PO BEDTIME Tobacco use date assessed: 04/17/25 Dental Screening Dental Screen Date: 04/17/25 [facility] HPI Comments History of Present Illness Details Patient presents to the office for a TCM visit. Date of admission: 07/17/25 Date of discharge:07/23/25 This is a Follow-up from admission at [facility]/Hospital Course/Discharge Summary: The patient is a 69-year-old male presenting for a hospital discharge follow-up after an aortic valve replacement. He was diagnosed with moderate aortic regurgitation about a year ago, which progressed to severe, leading to increasing fatigue and lower extremity edema. A repeat echocardiogram showed a dilated left ventricle, and his ejection fraction was noted as 55% pre- operatively and 40% intra-operatively. He underwent aortic valve replacement with a 25-mm Brewster Inspuris biological valve on 07/17 at [facility]. His post-operative course included a drop in potassium levels, which was treated with a 7-day course of potassium chloride, and transient urinary retention after catheter removal, which improved with tamsulosin. He was discharged home on 07/23. At home, the patient initially experienced dyspnea on exertion and used a walker but reports he is feeling much better now. He receives home visits from a nurse twice a week for vital and wound checks, as well as physical therapy for cardiac rehab. He is scheduled to begin outpatient cardiac rehab at [facility] on August 17. Medication changes post-surgery include stopping valsartan and hydrochlorothiazide, and starting spironolactone and tamsulosin. He has resumed taking tadalafil and gabapentin with his surgeon's approval. The patient's past medical history is notable for uncontrolled hypertension, a severe cough following a COVID-19 infection in 2022, and a history of both chickenpox and shingles. Discharged to/Current Location: Home Lives with: Girl Friend Diagnosis: Aortic valve insufficiency Procedures performed: Aortic valve replacement New medications: Acetaminophen 325 mg 3 tablets every 6 hours, aspirin 81 mg daily, furosemide 20 mg daily, spironolactone 25 mg daily, tamsulosin 0.4 mg daily at bedtime, atorvastatin 40 mg at bedtime, carvedilol 25 mg 1 tablet twice a day, nifedipine 60 mg 1 tablet daily, lorazepam 0.5 mg daily, omeprazole 20 mg 1 capsule daily, vitamin-D 1 capsule daily, gabapentin 100 mg 2 capsules twice a day, tadalafil 20 mg daily, valsartan 160 mg twice daily and hydrochlorothiazide 25 mg 1 tablet daily Discontinued medications: Baclofen 10 mg t.i.d. Change medications/dosing: See discharge summary Pending labs: None Pending diagnostic test: None Any Follow-up Labs required? Will obtain basic metabolic panel Any Follow-up Diagnostic test required? None How are you feeling? Pretty good now but first week was a struggle had some MANZANO and had to use a walker but no able to get up make coffee Are you in any pain or discomfort? Not at this time Do you have any questions about your condition or discharge instructions? Yes Were you able to get your medications filled? Yes Do you have any questions about your medications? None at this time Any referrals required? None at this time Were you able to schedule your follow-up appointment? yes seen Cardiology on Thursday If home health was ordered, have they contact you? None at this time and not interested Any outpatient services, if so, are you scheduled? None at this time and not interested Are there any additional resources like transportation you might need during her recovery? 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 None at this time and not interested Educational need/resources: What support system do you have? Girl Friend Social History - The patient lives with his girlfriend. - He denies interest in a home health ai de or Meals on Wheels. - His functional status is improving pos t-surgery; he initially required a walker but is now more independent with activities of daily living. - He is currently receiving in-home phys ical therapy for cardiac rehab twice a week. [facility] Medical History (Updated 08/04/25 @ 16:19 by Malena Fatima PA-C) Healthcare maintenance Aortic insufficiency Hospital discharge follow-up Hyperlipidemia Vitamin D deficiency Dehydration Peripheral neuropathy Chronic back pain Hypertension Encounter for preventive care Back pain Extremity edema Paresthesias Establishing care with new doctor, encounter for Elevated PSA BPH (benign prostatic hyperplasia) Hypogonadism in male Elevated PSA Anxiety Retention of urine Elevated blood pressure reading in office with diagnosis of hypertension Surgical History (Updated 08/04/25 @ 16:18 by Malena Fatima PA-C) Aortic valve replaced H/O colonoscopy (~01/10/15) History of transurethral resection of prostate Family History Mother Breast cancer Father Heart attack Social History Housing: House Alcohol intake: current Alcohol intake frequency: does not drink Patient Tobacco Use Status: Never used Tobacco service: No Current occupational status: retired Cognitive needs: No Hearing needs: No Vision needs: Yes (reading glasses) Questionnaire PHQ-9 Over the last 2 weeks, how often have you been bothered by any of the following problems? 1. Little interest or pleasure in doing things: not at all 2. Feeling down, depressed, or hopeless: not at all 3. Trouble falling or staying asleep, or sleeping too much: not at all 4. Feeling tired or having little energy: not at all 5. Poor appetite or overeating: not at all 6. Feeling bad about yourself - or that you are a failure or have let yourself or your family down: not at all 7. Trouble concentrating on things, such as reading the newspaper or watching television: not at all 8. Moving or speaking so slowly that other people could have noticed. Or the opposite - being so fidgety or restless that you have been moving around a lot more than usual: not at all 9. Thoughts that you would be better off or of hurting yourself in some way: not at all Total score: 0 Depression Screening Interpretation: Negative Depression Screening Done: Yes 95398 - PHQ-9 Billing: Yes Source: Developed by Drs. Patric Juárez, Veronica Luna, Jose Lozano and colleagues, with an educational herson from [employer]. Thrive Questionnaire Date Thrive assessed: 04/17/25 I am a: Patient What is your living situation today?: I have a steady place to live Within the past 12 months, did the food you bought not last and you didn't have the money to get more?: Never true Within the past 12 months, did you worry whether your food would run out before you got money to buy more?: Never true Do you have trouble paying for medicines?: No Do you have trouble getting transportation to medical appointments?: No Do you have trouble paying your heating and electricity bill?: No Do you have trouble taking care of your child, family member or friend?: No Do you have trouble with day-to-day activities such as bathing, preparing meals, shopping, managing finances, etc.?: No Are you currently unemployed and looking for a job?: No Are you interested in more education?: No Please select the resources that you would like help with: None Currently or been in a relationship where the following occur: No concerns reported THRIVE Score: 0 AUDIT C Alcohol Use Questionnaire (AUDIT-C) 1. How often do you have a drink containing alcohol?: Never 3. How often do you have six or more drinks on one occasion?: Never Total Score: 0 Score Reviewed/Action Taken: No KAILEY-7 AMB Questionnaire KAILEY-7 Date KAILEY - 7 assessed: 04/17/25 Feeling nervous, anxious, or on edge: 0 = Not at all Not being able to stop or control worryin = Not at all Worrying too much about different things: 0 = Not at all Trouble relaxin = Not at all Being so restless that it is hard to sit still: 0 = Not at all Becoming easily annoyed or irritable: 0 = Not at all Feeling afraid as if something awful might happen: 0 = Not at all Total KAILEY-7 score (0-4 normal; 5-9 mild; 10-14 moderate; 15-21 severe): 0 Source: Developed by Drs. Patric Juárez, Veronica Luna, Jose Lozano and colleagues, with an educational herson from [employer]. KAILEY-7 Assessment Billing KAILEY-7 Assessment Tool: KAILEY-7 Assessment 82890 Review of Systems Const Details: - Constitutional: Reports initial post-operative fatigue that is now improving. - Respiratory: Reports initial dyspnea on exertion after surgery, which has improved. - Integumentary: Reports a feeling of a stitch or a rough area on his surgical incision. - Genitourinary: Reports history of post-operative incomplete bladder emptying that has resolved with medication. - Musculoskeletal: Denies significant pain at the surgical site. All systems reviewed & are unremarkable except as noted in HPI and below Physical exam (Primary Care) Vital Signs: Last Vital Signs Temp 97.6 F 08/04/25 14:28 Pulse 72 08/04/25 14:28 Resp 14 08/04/25 14:28 BP 129/67 08/04/25 14:28 Pulse Ox 99 08/04/25 14:28 Oxygen Delivery Method Room Air 08/04/25 14:28 Vitals signs have been reviewed. Care Plan Goal for BP management: <140/90 at Goal BMI result Body Mass Index 26.1 BMI Assessment/Plan discussion: High BMI High, discussed plan: lifestyle, weight reduction, dietary, physical activity, alcohol moderation and other Tobacco/Smoking Status: Tobacco use Status Tobacco use date assessed 04/17/25 08/04/25 14:32 Patient Tobacco Use Status Never used Tobacco 08/04/25 14:32 PHQ-9: PHQ-9 Score PHQ-9: Total score 0 08/04/25 15:06 Depression Screening Interpretation: Negative Thrive Assessment: Date of Thrive Assessment Date Thrive assessed 04/17/25 08/04/25 14:32 Currently or been in a relationship where the following occur: No concerns reported Const Other: Appearance: Alert. Oriented X3. No acute distress. Head: Normal external exam. Normocephalic. Atraumatic. Eyes: Pupils are equal, round, and reactive to light. Extraocular movements intact. Conjunctiva and sclera normal. Eyelids normal. Throat: Pharynx normal. Uvula midline. Moist mucous membranes. Neck: Normal inspection. Neck supple. Full range of motion. Cardiovascular: Normal heart rate and rhythm. Heart sound normal. No murmurs noted. Pulses normal throughout. Respiratory: No respiratory distress. Painless inspiration. Breath sounds normal. No wheezes/rales/rhonchi noted. Chest nontender. Surgical wounds im proving to the wound of the abdomen he has mild dehiscence. No signs of active infection. No accessory muscle usage noted or decreased air movement noted. Abdomen: Soft and nontender. No distention noted. No organomegaly noted. Back: Full range of motion noted. Skin: Skin warm and dry. Normal skin color. Normal skin turgor. No additional rashes/lesions/lacerations noted. Extremities: No lower extremity edema. Extremities exhibit normal range of motion. Neuro: Oriented X 3. No motor deficit. No sensory deficit. Reflexes normal. Results Reviewed Results Reviewed: - Labs: Post-operative hospital labs revealed hypokalemia, which was treated. - Baseline creatinine was 1.1. - Echocardiogram (pre-op): Showed progression to severe aortic regurgitation and a dilated left ventricle. - Ejection Fraction: 55% on 02/02/2025; 40% on intraoperative JOSSY on 07/17/2025. - Bladder Scan (in hospital): Showed improvement in post-void residual from 250 cc to 32 cc after starting tamsulosin. 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 Coding Level of Care Code TCM High MDM <= 14 days Complex EM visit Add On G2211 Diagnoses Hospital discharge follow-up Z09 Aortic insufficiency I35.1 Aortic valve replaced Z95.2 Healthcare maintenance Z00.00 Additional Codes KAILEY-7 Assessment Billing - KAILEY-7 Assessment Tool: KAILEY-7 Assessment 17106 ([id number]) PHQ-9 - 36577 - PHQ-9 Billing: Yes ([id number]) Time Spent (min) 60 Assessment & Plan Assessment & Plan (1) Hospital discharge follow-up: Code(s): Z09 - Encounter for follow-up examination after completed treatment for conditions other than malignant neoplasm Category: Medical Plan: From [facility] after aortic valve regurgitation with Dr. Roman (2) Aortic insufficiency: Code(s): I35.1 - Nonrheumatic aortic (valve) insufficiency Category: Medical Plan: The patient is recovering well from his aortic valve replacement. Heart auscultation reveals normal sounds without an audible click from the new biological valve. Given his recent in-hospital hypokalemia and current spironolactone use, blood work to check his potassium level will be ordered. He will continue his current medications, continue monitoring blood pressure at home, and proceed with scheduled home health services and outpatient cardiac rehab. Refills will be provided as needed. Follow-up is scheduled in 2 months. (3) Aortic valve replaced: Comment: 25-mm Brewster Inspuris biological valve on 07/17 at [facility] by Dr. Roman Code(s): Z95.2 - Presence of prosthetic heart valve Category: Surgical Plan: The patient is recovering well from his aortic valve replacement. Heart auscultation reveals normal sounds without an audible click from the new biological valve. Given his recent in-hospital hypokalemia and current spironolactone use, blood work to check his potassium level will be ordered. He will continue his current medications, continue monitoring blood pressure at home, and proceed with scheduled home health services and outpatient cardiac rehab. Refills will be provided as needed. Follow-up is scheduled in 2 months. (4) Healthcare maintenance: Code(s): Z00.00 - Encounter for general adult medical examination without abnormal findings Category: Medical Plan: Due to his history of chickenpox and shingles and his post-surgical state, the shingles vaccine is recommended to prevent recurrence. The patient will first discuss this with his leather goods sales representative. He will also need another COVID-19 vaccine. Plan Plan Patient was informed and verbally consented to the use of an ambient scribe for clinic note documentation during this visit. 1. Severe Aortic Insufficiency, Status Post Aortic Valve Replacement The patient is recovering well from his aortic valve replacement. Heart auscultation reveals normal sounds without an audible click from the new biological valve. Given his recent in-hospital hypokalemia and current spironolactone use, blood work to check his potassium level will be ordered. He will continue his current medications, continue monitoring blood pressure at home, and proceed with scheduled home health services and outpatient cardiac rehab. Refills will be provided as needed. Follow-up is scheduled in 2 months. 2. Superficial Surgical Site Dehiscence A small, open, and irritated area was noted on a former drain site, likely due to friction from his shirt. The wound was cleaned. The patient was instructed to keep the area clean with soap and water or Avosh, apply topical antibiotic, and cover with a Band-Aid for a few days, followed by leaving it open to air to promote healing. He was advised to avoid using alcohol or peroxide on the wound. 3. Health Maintenance Due to his history of chickenpox and shingles and his post-surgical state, the shingles vaccine is recommended to prevent recurrence. The patient will first discuss this with his leather goods sales representative. He will also need another COVID-19 vaccine. I reviewed the patient's recent hospitalization for his aortic valve replacement on 07/17. I examined his sternal incision and noted a small, open, and erythematous area on a previous drain site, which I suspect is from frictional irritation. I cleaned the wound and provided detailed home care instructions, including the use of topical antibiotics and a temporary dressing, and advised against using alcohol or peroxide. We discussed his medication regimen, clarifying the new additions of spironolactone and tamsulosin, the discontinuation of valsartan and hydrochlorothiazide, and the resumption of tadalafil and gabapentin per his surgeon's advice. Due to his use of a diuretic and a history of hypokalemia during his hospital stay, I explained the necessity of checking his blood work to monitor his potassium levels, and he agreed to do so within the week. We discussed immunizations, and I recommended he receive the shingles vaccine, advising him to confirm with his leather goods sales representative first. I reassured him that on auscultation his heart sounds were excellent and his new biological valve was functioning quietly. We agreed to a follow-up appointment in two months to continue monitoring his recovery. Orders: Orders Comprehensive Met. Panel Today Z00.00 - Encounter for general adult medical examination without abnormal findings Patient Instructions: - For the small open spot on your chest wound, clean it daily with soap and water or the Avosh cleanser. - After cleaning, apply a small amount of topical antibiotic ointment and cover it with a fresh Band-Aid for the next 2-3 days. - After a few days, you can leave it uncovered to let it air out and heal. - Please get your blood drawn sometime in the next week so we can check your potassium levels. - Continue with your visiting nurse and home physical therapy appointments. - You are scheduled to start cardiac rehab at [facility] on August 17. - We recommend you get the shingles vaccine because of your history. - Please check with your leather goods sales representative, Dr. Guevara, before getting the shot. - When you need medication refills, please call our office, the pharmacy, or send a request through the online portal. - Please schedule a follow-up appointment in our office in about two months.
== END 2025-08-04 15:31 | disposition home or self-care (01) ==
LOC: HO.HMCSH 14:21
PROVIDERS: PCP Physician Assistant Medical; Visit Provider Physician Assistant Medical
DX: I35.1 Nonrheumatic aortic (valve) insufficiency (principal); Z95.2 Presence of prosthetic heart valve; Z09 Encounter for follow-up examination after completed treatment for conditions other than malignant neoplasm

== ENCOUNTER → 2025-08-04 14:21 | Outpatient (BNVA) | payer MEDICARE, SELFPAY | PROVIDERS: PCP Physician Assistant Medical; Visit Provider Physician Assistant Medical | DX: Z00.00 Encounter for general adult medical examination without abnormal findings (principal); I35.1 Nonrheumatic aortic (valve) insufficiency; T81.31XA Disruption of external operation (surgical) wound, not elsewhere classified, initial encounter; Z48.812 Encounter for surgical aftercare following surgery on the circulatory system; Z95.2 Presence of prosthetic heart valve | CPT/HCPCS: 96127; 99212 ==

== ENCOUNTER 2025-08-10 08:46 | Outpatient (REF) | payer MEDICARE, SELFPAY ==
--- OUTSIDE RECORDS SUMMARY | 2025-06-01 09:22 | XMS_ITS ---
Author Organization [facility] Address [address] [place] [id number] Care Team Providers Care Architectural Administrative Assistant Name Role Phone Ashlyn (RETIRED) Jam MENDEZ Primary Care Provider Unavailable Patric Solomon Unavailable [phone] REASON FOR VISIT cancel procedure Medications Medication SIG (Take, Route, Frequency, Duration) Notes Start Date End Date Status hydroCHLOROthiazide Not-Taking Carvedilol Active LORazepam 0.5 MG 1 tablet as needed Orally Twice a day Active Atorvastatin Calcium Active Valsartan 160 MG TAKE ONE TABLET BY MOUTH TWICE A DAY Oral; Duration: 90 Days Not-Taking Tylenol Active Vitamin D 50 MCG (1999) 1 tablet Oral ly Once a day Active Omeprazole 20 MG 1 capsule 1/2 to 1 hour before morning meal Orally Once a day Active Spironolactone 25 MG 1 tablet Orally Once a day Active Tamsulosin HCl 0.4 MG 1 capsule Orally Once a day Active NIFEdipine ER Osmotic Releas e 60 MG TAKE 1 TABLET BY MOUTH TWO TIMES A DAY Oral; Duration: 90 Days Active Encounters Encounter Location Date Provider Diagnosis [facility] [address] [place] [id number] 06/01/2025 Patric Solomon Plan Of Treatment No Information Progress Notes * DIMPLE WELLSDOB:1955 (69 yo M)Acc No.[id number]:06/01/2025 Patient: DIMPLE BATES :1955 A ge:69 Y S ex:Male Address:[address] [place] [address] Subjective: * Chief Complaints: * C ancel procedure * Medical History: * Surgical History: * Hospitalization/Major Diagno stic Procedure: * Medications: T akingTylenol Omeprazole 20 MG Capsule Delayed Release 1 capsule 1/2 to 1 hour before morning meal Orally Once a day Vitamin D 50 MCG (1999) Tablet 1 tablet Orally Once a day Tamsulosin HCl 0.4 MG Capsule 1 capsule Orally Once a day Spironolactone 25 MG Tablet 1 tablet Orally Once a day Carvedilol Atorvastatin Calcium LORazepam 0.5 MG Tablet 1 tablet as needed Orally Twice a day NIFEdipine ER Osmotic Release 60 MG Tablet Extended Release 24 Hour TAKE 1 TABLET BY MOUTH TWO TIMES A DAY Oral Taking Tylenol Taking Omeprazole 20 MG Capsule Delayed Release 1 capsule 1/2 to 1 hour before morning meal Orally Once a day Taking Vitamin D 50 MCG (1999) Tablet 1 tablet Orally Once a day Taking Tamsulosin HCl 0.4 MG Capsule 1 capsule Orally Once a day Taking Spironolactone 25 MG Tablet 1 tablet Orally Once a day Taking Carvedilol Taking Atorvastatin Calcium Taking LORazepam 0.5 MG Tablet 1 tablet as needed Orally Twice a day Taking NIFEdipine ER Osmotic Release 60 MG Tablet Extended Release 24 Hour TAKE 1 TABLET BY MOUTH TWO TIMES A DAY Oral Not- Taking/PRNhydroCHLOROthiazide Valsartan 160 MG Tablet TAKE ONE TABLET BY MOUTH TWICE A DAY Oral Not-Taking/PRN hydroCHLOROthiazide Not-Taking/PRN Valsartan 160 MG Tablet TAKE ONE TABLET BY MOUTH TWICE A DAY Oral Objective: * Vitals: * Physical Examination: Assessment: Plan: * Treatment: * Procedure Codes: * * Date:
--- OUTSIDE RECORDS SUMMARY | 2025-06-19 06:50 | XMS_ITS ---
Author Organization [facility] Address [address] [place] [id number] Care Team Providers Care Shuttlecock Assembler Name Role Phone Ashlyn (RETIRED) Jam MENDEZ Primary Care Provider Unavailable Patric Solomon [phone] REASON FOR VISIT screening Encounters Encounter Location Date Provider Diagnosis [facility] [address] [place] [phone] 06/19/2025 Patric Solomon Plan Of Treatment No Information Progress Notes * DIMPLE WELLSDOB:1955 (69 yo M)Acc No.[id number]:06/19/2025 COLON WITH MAC Patient: DIMPLE BATES Provider: Iyv Solomon MD :1955 A ge:69 Y S ex:Male Date:06/19/2025 Address:[address] [id number] Pcp:Jam Goldberg (RETIRED) MD Subjective: * Chief Complaints: * 1 . Screening. * Medical History: Objective: * Vitals: Assessment: Plan: * Treatment: * * The named appointment provid er may or may not be the originator of this progress note, and it is not deemed complete until electronically signed by the appointment provider. Sign off status: Pending * Provider: Ivy Solomon MD Date: 0 06/19/2025 Generated for Printi ng/Faxing/eTransmitting on: 1 10/10/2024 09:11 AM EST
--- OUTSIDE RECORDS SUMMARY | 2025-08-10 09:11 | XMS_ITS | Patient Health Record ---
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 Name Role Phone Ashlyn (RETIRED) Jam MENDEZ Primary Care Provider Unavailable Patric Solomon Unavailable [phone] Allergies No Known Allergies Reason For Referral No Information Medications Medication SIG (Take, Route, Frequency, Duration) Notes Start Date End Date Status hydroCHLOROthiazide Not-Taking Carvedilol Active LORazepam 0.5 MG 1 tablet as needed Orally Twice a day Active Atorvastatin Calcium Active NIFEdipine ER Osmotic Releas e 60 MG TAKE 1 TABLET BY MOUTH TWO TIMES A DAY Oral; Duration: 90 Days Active Valsartan 160 MG TAKE ONE TABLET [...] 1 capsule Orally Once a day Active Problems Problem Type SNOMED Code ICD Code Onset Dates Problem Status W/U Status Risk Notes Problem Feces contents abnormal (944080944) Heme + stool (792.1) Active confirmed Vital Signs Blood pressure diastolic 77 mm Hg 03/28/2025 Height 68 in 03/28/2025 Blood pressure systolic 111 mm Hg 03/28/2025 Weight 179 lbs 03/28/2025 BMI 27.21 kg/m2 03/28/2025 Procedures Procedure Date Ordered Date Performed Result Body Sit e COLONOSCOPY 03/28/2025 N/A Encounters Encounter Location Date Provider Diagnosis [facility] [address] [place] [address] 03/28/2025 Patric Solomon Colon cancer screeni ng Z12.11 ; Preprocedural examination Z01.818 and High risk medications (not anticoagulants) long-term use Z79.899 [facility] [address] [place] [address] 06/01/2025 Patric Solomon Assessments Encounter Date Diagnosis (ICD Code) Assessment [...] obtain a letter of clearance from his hot plate plywood press operator in regard to his heart murmur. Dimple [...] obtain a letter of clearance from his hot plate plywood press operator in regard to his heart murmur. Dimple [...] obtain a letter of clearance from his hot plate plywood press operator in regard to his heart murmur. Dimple was comfortable with this plan. Thank you again for allowing me to participate in Dimple's care. I shall continue to keep you advised of his progress. Plan Of Treatment Pending Test Test Name Order Date COLONOSCOPY 03/28/2025 Future Test Test Name Order Date COLONOSCOPY 11/09/2014 Insurance Providers Payer Name Payer Address Payer Phone Subscriber Number Group Number Insured Name Patient Relationship to Insured Coverage Start Date Coverage End Date [facility] [address] [place] [address] [id number] RUSSELL DIMLPE Self - patient is the insured Medical (General) History Medical History History ICD Code BPH HTN Depression Anxiety Denies ND,DM,CVA,Lung disease,renal dise ase Negative colonoscopies in and 05/2007 except hyperplastic polyps, diverticulosis, and internal hemorrhoids Negative colonoscopy in 2014 Heart murmur-sees Dr. Guevara at [facility] Surgical History Surgery Date(Month/Year) Prostate 2017 Cataracts 2020 Hernia bilateral 2020 Detached retina both eyes
--- OUTSIDE RECORDS SUMMARY | 2025-08-10 09:11 | XMS_ITS | Patient Health Record ---
Author Organization [facility] Address [address] [place] [address] Care Team Providers Care Caddy Master Name Role Phone Jam Goldberg MD Primary Care Provider Unavailab Landen Allen Unavailable [phone] Allergies No Known Allergies Reason For Referral [...] End Date [employer] Medicare Preferred [address] [place] [address] [id number] Romie Joshi Self - patient is the insured Medical (General) History Medical History History ICD Code Anxiety High blood pressure Mumps Measles Chicken pox Cataracts Surgical History Surgery Date(Month/Year) detached retina 09/2004
[2025-08-10 11:34] LABS: Alanine Aminotransferase 14 U/L (0-40); Albumin Level 4.2 g/dL (3.5-5.0); Alkaline Phosphatase 123 U/L (39-117); Anion Gap 13 (12-20); Aspartate Amino Transferase 30 U/L (5-37); Blood Urea Nitrogen 13 mg/dL (9-16); Calcium 9.0 mg/dL (8.4-10.2); Carbon Dioxide 24 mmol/L (22-29); Chloride 108 mmol/L (96-108); Estimated Glomerular Filt Rate > 60; Potassium 4.6 mmol/L (3.3-5.1); Sodium 140 mmol/L (135-145); Total Protein 6.9 g/dL (6.5-8.0)
== END 2025-08-10 08:47 | disposition home or self-care (01) ==
LOC: HO.HMGCLDS 08:46
PROVIDERS: PCP Internal Medicine; Visit Provider Physician Assistant Medical
DX: Z00.00 Encounter for general adult medical examination without abnormal findings (principal)
CPT/HCPCS: 36415; 80053